=== PATIENT | female | born 2000 | race Caucasian/White ===

== ENCOUNTER 2022-06-11 01:44 | Outpatient (CLI) | payer MEDICAID, SELFPAY ==
[2022-06-11 15:28] LABS: Abs Immature Grans 0.06 10^3/uL (0.0-0.06); Absolute Eosinophil Count 0.22 10^3/uL (0.0-0.7); Absolute Lymphocyte Count 2.01 10^3/uL (1.2-3.4); Absolute Monocyte Count 0.69 10^3/uL (0.1-0.8); Basophils % 0.2; Eosinophils % 1.8; HCT 31.5 % (36.0-46.0); HGB 10.5 g/dL (11.2-15.7); Immature Grans % 0.5; Lymphocytes % 16.1; MCH 28.5 pg (27.0-33.0); MCHC 33.3 % (32.0-36.0); MCV 86 fL (80-95); MPV 9.2 fL (8.0-11.0); Monocytes % 5.5; Neutrophils % 75.9; Platelet Count 352 10^3/uL (130-400); RBC 3.68 10^6/uL (3.93-5.22); RDW 11.9 % (11.7-14.6); RDW-SD 37.2 fL; WBC 12.46 10^3/uL (4.4-10.8)
[2022-06-11 15:29] LABS: Absolute Basophil Count 0.02 10^3/uL (0.0-0.2); Absolute Neutrophil Count 9.46 10^3/uL (1.2-6.7)
[2022-06-11 15:53] LABS: Glucose,1 Hr (Glucola) 116 mg/dL (80-140)
[2022-06-13 14:22] LABS: Syphilis IgG w/Reflex Nonreactive (Nonreactive)
[2022-06-14 09:09] LABS: Hepatitis B Surface Ag Negative (Negative)
[2022-06-14 09:21] LABS: HIV-1/2 Ag & Ab Screen Negative (Negative)
[2022-06-14 09:35] LABS: Hepatitis C Ab w Rflx HCV PCR Negative (Negative)
[2022-06-14 12:02] LABS: Varicella IgG Antibody Positive (See Note)
[2022-06-14 12:10] LABS: Rubella IgG Ab (UVM) Positive (See Note)
== END 2022-06-11 01:45 | disposition home or self-care (01) ==
LOC: LBO 01:44
PROVIDERS: Visit Provider Advanced Practice Midwife
DX: Z34.91 Encounter for supervision of normal pregnancy, unspecified, first trimester (principal); Z3A.12 12 weeks gestation of pregnancy
CPT/HCPCS: 36415; 82950; 86787; 86803; 86850; 86900; 86901; 87340; 87389; 85025; 86762; 86780

== ENCOUNTER 2022-06-11 14:10 | Outpatient (REF) | payer MEDICAID, SELFPAY ==
--- NOTE | 2022-06-11 13:40 | PAPFT_PTH ---
PATIENT: Teetee Nielson LOC: [facility] U#:[id number] AGE/SX: 21/F ROOM: RE06/11/[address]: Yoana Marsh CNM : [id number] BED: DIS: 06/11/2022 SPEC #: [id number] RECD: 06/11/22 16:06 STATUS: JULIO REQ #: [id number] DOMINICK: 06/11/22 13:[address]: Yoana Marsh DEPT: [facility] Cytology RECD BY: Windy West ENTERED: 06/11/22 16:06 SP TYPE: PAPFT OTHR DR: Unknown,Unknown Tissues: 1 - CX/ENDOCX FOR PAP SMEARS Procedures: PAP THIN PREP/UVM Screening Comments: [id number]
== END 2022-06-11 14:11 | disposition home or self-care (01) ==
LOC: LBN 14:10
PROVIDERS: Visit Provider Advanced Practice Midwife
DX: Z12.4 Encounter for screening for malignant neoplasm of cervix (principal)
CPT/HCPCS: 88142; 87624

== ENCOUNTER 2022-06-11 16:21 | Outpatient (REF) | payer MEDICAID, SELFPAY ==
[2022-06-11 18:12] LABS: *AMPHETAMINES SCREEN URINE Negative (Negative); *BARBITURATES SCREEN URINE Negative (Negative); *BENZODIAZEPINES SCREEN URINE Negative (Negative); Cannabinoids THC Negative (Negative); Cocaine Screen,Urine Negative (Negative); METHADONE URINE SCREEN Negative (Negative); OPIATES URINE SCREEN Negative (Negative)
[2022-06-11 18:13] LABS: Tricyclic Antidepressants Negative (Negative)
[2022-06-14 15:08] LABS: Chlamydia Result Negative (Negative); GC Result Negative (Negative)
[2022-06-17 12:09] LABS: Buprenorphine Negative ng/mL (Cutoff: 5.0); Norbuprenorphine Negative ng/mL (Cutoff: 2.5)
== END 2022-06-11 16:22 | disposition home or self-care (01) ==
LOC: LBN 16:21
PROVIDERS: Visit Provider Advanced Practice Midwife
DX: Z34.91 Encounter for supervision of normal pregnancy, unspecified, first trimester (principal); Z3A.12 12 weeks gestation of pregnancy
CPT/HCPCS: 80307; 80348; 87491; 87591; 87086; 87480; 87510; 87660

== ENCOUNTER 2022-07-09 02:12 | Outpatient (CLI) | payer MEDICAID, SELFPAY ==
[2022-07-09 18:37] LABS: Panorama Kit Sent via Fed Ex
[2022-07-19 00:10] LABS: Specimen WB Whole Blood
[2022-08-17 17:14] LABS: Result Summary NEGATIVE; Specimen WB Whole Blood
== END 2022-07-09 02:13 | disposition home or self-care (01) ==
LOC: LBO 02:12
PROVIDERS: Advanced Practice Midwife; Obstetrics & Gynecology; Visit Provider Advanced Practice Midwife
DX: Z34.92 Encounter for supervision of normal pregnancy, unspecified, second trimester (principal); Z3A.16 16 weeks gestation of pregnancy; Z36.89 Encounter for other specified antenatal screening
CPT/HCPCS: 36415; 81220; 81222; 81329

== ENCOUNTER → 2022-07-28 01:11 | Outpatient (CLI) | payer MEDICAID, SELFPAY ==
--- NOTE | 2022-07-28 07:00 | DI.US_ITS ---
Exam(s) US OB 2-3 TRIMESTER EXAM: US OB 2-3 TRIMESTER CLINICAL HISTORY: anatomy,Z34.92. TECHNIQUE: Transabdominal obstetrical ultrasound was performed. COMPARISON: US POCUS EXAM from 05/20/2022 FINDINGS: There is a single viable intrauterine gestation with cardiac activity identified-143 bpm. Amniotic fluid: There is a normal amount of amniotic fluid. Placental location: The placenta is posterior grade 1,with no evidence of placenta previa.Distance be tween the tip of the placenta and the internal cervical os is 3.8 cm ANATOMY: A 3 vessel umbilical cord is seen. A four-chamber cardiac view was obtained. Right and left ventricular outflow tracts were imaged.Aortic arch images obtained. There are no obvious abnormalities of the spinal column evident. There is no obvious abnormal ity of the anterior abdominal wall. stomach and urinary bladder are identified and there is no evidence of hydronephrosis. No abnormalities of the upper lip region are identified. No evidence of choroid plexus cysts i n the brain. Dating parameters place this at approximately 19 weeks gestational age. BPD measures 19 weeks and 1 day HC measures 18 weeks and 6 days AC measures 19 weeks and 2 days FL measures 18 weeks and 6 days Estimated weight is 272 gm-0 pounds 10 ounces Fetus is at the 67th percentile on the Hadlock scale. IMPRESSION:: Single viable intrauterine gestation which is approximately 19 weeks gestational age, i mplying an NAKITA of December 22, 2022. There are no obvious anomalies evident on today's study. The placenta is posterior with no evidence of placenta previa. There is a normal amount of amniotic fluid. DATA REPOSITORY:
== END ==
PROVIDERS: Visit Provider Advanced Practice Midwife
DX: Z34.92 Encounter for supervision of normal pregnancy, unspecified, second trimester (principal)
CPT/HCPCS: 76805

== ENCOUNTER 2022-09-20 00:38 | Outpatient (CLI) | payer MEDICAID, SELFPAY ==
--- NOTE | 2022-09-20 08:00 | DI.US_ITS ---
Exam(s) US ABDOMEN LIMITED EXAM: US ABDOMEN LIMITED CLINICAL HISTORY: right upper quadrant pain - check gall bladder,R10.11 TECHNIQUE: Ultrasound abdomen performed using standard protocol. COMPARISON: US POCUS EXAM from 05/20/2022 FINDINGS: LIVER: Normal size and echogenicity. No focal liver lesions are seen.. GALLBLADDER: Sludge as well as layering tiny stones no evidence of wall thickening. No pericholecysti c fluid identified. BAL'S SIGN: Negative. BILIARY SYSTEM: No intrahepatic or extrahepatic biliary ductal dilation. RIGHT KIDNEY: Normal size. No evidence of renal calculi. No evidence of hydronephrosis. No suspicious renal mass. No cyst identified. PANCREAS: Normal where visualized. ABDOMINAL AORTA AND IVC: Visualized portions normal caliber. ASCITES: None seen. IMPRESSION: Cholelithiasis.. DATA REPOSITORY:
== END 2022-09-20 00:58 ==
PROVIDERS: Visit Provider Obstetrics & Gynecology
DX: K80.20 Calculus of gallbladder without cholecystitis without obstruction (principal)
CPT/HCPCS: 76705

== ENCOUNTER 2022-09-23 01:38 | Outpatient (CLI) | payer MEDICAID, SELFPAY ==
[2022-09-23 15:15] LABS: Abs Immature Grans 0.08 10^3/uL (0.0-0.06); Absolute Basophil Count 0.02 10^3/uL (0.0-0.2); Absolute Eosinophil Count 0.17 10^3/uL (0.0-0.7); Absolute Lymphocyte Count 1.43 10^3/uL (1.2-3.4); Absolute Monocyte Count 0.75 10^3/uL (0.1-0.8); Basophils % 0.2; Eosinophils % 1.4; HCT 29.6 % (36.0-46.0); Immature Grans % 0.7; Lymphocytes % 12.1; MCH 30.1 pg (27.0-33.0); MCHC 33.8 % (32.0-36.0); MCV 89 fL (80-95); MPV 9.4 fL (8.0-11.0); Monocytes % 6.3; Neutrophils % 79.3; Platelet Count 285 10^3/uL (130-400); RBC 3.32 10^6/uL (3.93-5.22); WBC 11.85 10^3/uL (4.4-10.8)
[2022-09-23 15:33] LABS: Glucose,1 Hr (Glucola) 117 mg/dL (80-140)
== END 2022-09-23 01:39 | disposition home or self-care (01) ==
LOC: LBO 01:38
PROVIDERS: Obstetrics & Gynecology; Visit Provider Advanced Practice Midwife
DX: Z34.92 Encounter for supervision of normal pregnancy, unspecified, second trimester (principal); Z3A.27 27 weeks gestation of pregnancy
CPT/HCPCS: 36415; 82950; 85025

== ENCOUNTER 2022-11-22 15:49 | Outpatient (CLI) | payer MEDICAID, SELFPAY ==
[2022-11-22 16:14] LABS: Abs Immature Grans 0.22 10^3/uL (0.0-0.06); Absolute Basophil Count 0.05 10^3/uL (0.0-0.2); Absolute Eosinophil Count 0.32 10^3/uL (0.0-0.7); Absolute Lymphocyte Count 1.63 10^3/uL (1.2-3.4); Basophils % 0.3; Eosinophils % 1.8; HCT 32.7 % (36.0-46.0); HGB 11.1 g/dL (11.2-15.7); Immature Grans % 1.2; Lymphocytes % 9.2; MCH 29.8 pg (27.0-33.0); MCHC 33.9 % (32.0-36.0); MCV 88 fL (80-95); MPV 10.1 fL (8.0-11.0); Monocytes % 7.9; Neutrophils % 79.6; Platelet Count 364 10^3/uL (130-400); RBC 3.73 10^6/uL (3.93-5.22); RDW-SD 41.6 fL; WBC 17.72 10^3/uL (4.4-10.8)
[2022-11-22 16:15] LABS: Absolute Neutrophil Count 14.11 10^3/uL (1.2-6.7)
[2022-11-22 17:00] LABS: ALT 23 U/L (14-59); AST 18 U/L (15-37); Alkaline Phosphatase 118 U/L (46-116); Anion Gap 10.8 mmol/L (3-11); BUN 6 mg/dL (7-18); Bilirubin, Total 0.2 mg/dL (0.2-1.0); CO2 24.2 mmol/L (21.0-32.0); CREATININE 0.5 mg/dL (0.55-1.02); Calcium 9.8 mg/dL (8.5-10.1); Chloride 104 mmol/L (98-107); Estimated GFR 135.91 (mL/min/1.73m2); Glucose 110 mg/dL (74-106); Potassium 3.7 mmol/L (3.5-5.1); Sodium 139 mmol/L (136-145); Total Protein 7.1 g/dL (6.4-8.2)
[2022-11-25 15:40] LABS: Total Bile Acids 3.36 nmol/mL (<=19.00); Total Chenodeoxycholic acid 1.48 nmol/mL (<=6.00); Total Cholic acid 0.77 nmol/mL (<=5.00); Total Deoxycholic acid 0.65 nmol/mL (<=6.00); Total Ursodeoxycholic acid 0.46 nmol/mL (<=2.00)
== END 2022-11-22 15:50 | disposition home or self-care (01) ==
LOC: LBO 15:53
PROVIDERS: Visit Provider Obstetrics & Gynecology
DX: O99.713 Diseases of the skin and subcutaneous tissue complicating pregnancy, third trimester; L50.8 Other urticaria; Z3A.35 35 weeks gestation of pregnancy
CPT/HCPCS: 36415; 80053; 83789; 85025

== ENCOUNTER 2022-11-30 12:50 | Outpatient (CLI) | payer MEDICAID, SELFPAY ==
--- NOTE | 2022-11-30 15:45 | DI.US_ITS ---
Exam(s) US LOWER EXTREMITY VENOUS LT EXAM: US LOWER EXTREMITY VENOUS LT CLINICAL HISTORY: Pain L lateral ankle. 1.52m difference in circum, 3rd trimester , TECHNIQUE: Left lower extremity venous ultrasound performed using grayscale, color-flow, and spectra l Doppler analysis. COMPARISON: No exams were available for comparison FINDINGS: The left common femoral, femoral and popliteal veins demonstrate normal compressibility, augmentation , and color Doppler. The posterior tibial veins are patent. The saphenofemoral junction is unremarka ble. There is no evidence of a Eastman cyst. The soft tissues are unremarkable. IMPRESSION: No evidence of a left lower extremity DVT. DATA REPOSITORY:
== END 2022-11-30 12:51 | disposition home or self-care (01) ==
LOC: LBN 04-05 12:51
PROVIDERS: Visit Provider Obstetrics & Gynecology Gynecology
DX: M25.572 Pain in left ankle and joints of left foot (principal); Z34.93 Encounter for supervision of normal pregnancy, unspecified, third trimester
CPT/HCPCS: 87081; 93971

== ENCOUNTER 2022-12-08 13:43 | Outpatient (CLI) | payer MEDICAID, SELFPAY ==
[2022-12-08 13:56] VITALS: BP 138/85; PULSE 104
[2022-12-08 14:10] VITALS: BP 138/85; PULSE 104; TEMP 36.6
[2022-12-08 14:13] VITALS: BP 129/78; PULSE 111
[2022-12-08 14:27] LABS: Abs Immature Grans 0.12 10^3/uL (0.0-0.06); Absolute Basophil Count 0.03 10^3/uL (0.0-0.2); Absolute Eosinophil Count 0.25 10^3/uL (0.0-0.7); Absolute Monocyte Count 0.96 10^3/uL (0.1-0.8); Absolute Neutrophil Count 13.63 10^3/uL (1.2-6.7); Basophils % 0.2; Eosinophils % 1.5; HCT 33.6 % (36.0-46.0); HGB 11.5 g/dL (11.2-15.7); Immature Grans % 0.7; Lymphocytes % 10.7; MCH 29.9 pg (27.0-33.0); MCHC 34.2 % (32.0-36.0); MCV 88 fL (80-95); Monocytes % 5.7; Neutrophils % 81.2; Platelet Count 406 10^3/uL (130-400); RBC 3.84 10^6/uL (3.93-5.22); RDW 13.1 % (11.7-14.6); RDW-SD 41.8 fL; WBC 16.79 10^3/uL (4.4-10.8)
[2022-12-08 14:39] VITALS: BP 127/75; PULSE 111
[2022-12-08 14:52] LABS: ALT 24 U/L (14-59); AST 19 U/L (15-37); Albumin 2.9 g/dL (3.4-5.0); Alkaline Phosphatase 128 U/L (46-116); Anion Gap 11.2 mmol/L (3-11); BUN 6 mg/dL (7-18); Bilirubin, Total 0.2 mg/dL (0.2-1.0); CO2 22.8 mmol/L (21.0-32.0); CREATININE 0.5 mg/dL (0.55-1.02); Calcium 9.2 mg/dL (8.5-10.1); Chloride 106 mmol/L (98-107); Estimated GFR 135.91 (mL/min/1.73m2); Glucose 123 mg/dL (74-106); Potassium 3.7 mmol/L (3.5-5.1); Sodium 140 mmol/L (136-145); Total Protein 7.1 g/dL (6.4-8.2)
[2022-12-08 15:30] VITALS: BP 138/85; PULSE 104; TEMP 36.6
--- NOTE | 2022-12-08 15:30 | W.OBNST ---
Date of service: 12/08/22 Time of Service: 15:30 NST Evaluation Reason for NST Reasons for Nonstress Test: GESTATIONAL HYPERTENSION Gestational Age Gestational Age in Weeks and Days: 37 Weeks and 5Days Test and Monitor Explained Test/Monitor Explained: Test Explained, Monitor Explained and Patient Verbalized Understanding Vital Signs Blood Pressure: 138/85 Pulse: 104 Temperature: 97.9 F NST Information Date on Monitor: 12/08/22 Time on Monitor: 13:52 Date off Monitor: 12/08/22 Time off Monitor: 14:37 Total Time on Monitor: 45 NST Interventions: PO Hydration NST Evaluation Patient States Movement: Present FHR Baseline: 135 Variability: Moderate 6-25 bpm Accelerations: 15x15 Decelerations: None NST Results: Reactive Note Ultrasound Done: N/A. NST Note Note: Reactive, category 1 NST Reviewed and Verified by: Krystyna Wilburn
[2022-12-08 17:51] LABS: COMMENT (LAB VIEW ONLY) 70.18 mg/dL; PROTEIN 18.8 mg/dL; Prot/Crea Ur Ratio 0.26
== END 2022-12-08 14:45 ==
LOC: BCD 13:44 → OBS 13:47
PROVIDERS: Visit Provider Obstetrics & Gynecology
DX: O13.9 Gestational [pregnancy-induced] hypertension without significant proteinuria, unspecified trimester (principal); Z3A.37 37 weeks gestation of pregnancy
CPT/HCPCS: 36415; 80053; 59025; 82565; 84156; 85025

== ENCOUNTER 2022-12-13 13:24 | Outpatient (REF) | payer MEDICAID, SELFPAY ==
[2022-12-13 14:14] LABS: PROTEIN 28.2 mg/dL (0.0-11.9)
[2022-12-13 14:16] LABS: Creatinine,24hr Ur 1.31 g/24hr (0.60-1.80); TOTAL PROTEIN,URINE TIMED 310.2 mg/24hr (0.0-149.1); Total Volume 1100 ml
== END 2022-12-13 13:25 | disposition home or self-care (01) ==
LOC: LBN 13:24
PROVIDERS: Visit Provider Obstetrics & Gynecology
DX: O13.3 Gestational [pregnancy-induced] hypertension without significant proteinuria, third trimester (principal); Z3A.38 38 weeks gestation of pregnancy
CPT/HCPCS: 81050; 82570; 84155

== ENCOUNTER 2022-12-17 13:54 | Inpatient (IN) | payer MEDICAID, SELFPAY ==
[2022-12-17] VITALS (72 sets, daily range): BP systolic 108–161; BP diastolic 55–105; PULSE 0–148; RESP 18–20; TEMP 36.7–36.9; O2SAT 97–98
[2022-12-17 14:28] LABS: HCT 33.9 % (36.0-46.0); HGB 11.4 g/dL (11.2-15.7); MCH 29.8 pg (27.0-33.0); MCHC 33.6 % (32.0-36.0); MCV 89 fL (80-95); MPV 10.2 fL (8.0-11.0); Platelet Count 401 10^3/uL (130-400); RBC 3.82 10^6/uL (3.93-5.22); RDW 13.1 % (11.7-14.6); RDW-SD 41.9 fL; WBC 13.33 10^3/uL (4.4-10.8)
[2022-12-17 14:39] LABS: COMMENT (LAB VIEW ONLY) 61.58 mg/dL; Prot/Crea Ur Ratio 0.29
[2022-12-17] MEDS: miSOPROStol 25 MCG TAB PO ×3 (14:41→23:06)
[2022-12-17 14:50] LABS: ALT 20 U/L (14-59); AST 17 U/L (15-37); Albumin 2.9 g/dL (3.4-5.0); Alkaline Phosphatase 136 U/L (46-116); Anion Gap 10.1 mmol/L (3-11); BUN 4 mg/dL (7-18); Bilirubin, Total 0.2 mg/dL (0.2-1.0); CO2 21.9 mmol/L (21.0-32.0); CREATININE 0.4 mg/dL (0.55-1.02); Chloride 104 mmol/L (98-107); Estimated GFR 143.42 (mL/min/1.73m2); Glucose 93 mg/dL (74-106); Potassium 3.7 mmol/L (3.5-5.1); Sodium 136 mmol/L (136-145); Total Protein 7.1 g/dL (6.4-8.2)
--- NOTE | 2022-12-17 16:56 | HPE_ITS ---
Date of service: 12/17/22 Time of Service: 16:56 Assessment and Plan Assessment and plan (1) Gestational HTN: Status: Acute Assessment and plan: Patient currently 39W0D EGA with headache and variable blood pressures. Her laboratory studies including protein creatinine ratio are normal. Physical exam is unremarkable. I recommended that we begin the proximal process of cervical ripening with the planned augmentation of labor and move towards delivery in a timely fashion. Patient is agreeable to the plan. We will begin oral misoprostol every 4 hours. OB-HPI Labor/Delivery History of Present Illness Reason for Visit: headache at term Chief Complaint: Signs/Symptoms Gestational HTN , Associated Signs and Symptoms of GestationalHTN: Elevated blood pressure, headache low stream edema. NAKITA Calculator Estimated Delivery Date Method Current WG Current Estimate 12/24/22 LMP (Certain) 39w 0d Other Estimates 12/25/22 Ultrasound #1 38w 6d History of Present Expected Delivery Route/Plan - FOB/ - Jalen (first child) Doesn't want to know gender Specific Issues/Plan 1.cfDNA, CF/SMA neg. Dont want to know gender 2. BMI 37.5 - early GTT:116. 28w Glucola 117. 3.Intake Hgb 10.5/HCT 31.5. 28w Hct 29.5. Pt counseled Ferrous sulfate 325mg/day 10/08/2022. Offer patient Tdap at 32-week visit Assessment: History Reviewed & Current Narrative: Patient established care at 8 weeks estimated gestational age. She has had a total of 14 visits. Size equal to dates. Total weight gain 43 pounds. On 12/08/2022 at the time of a routine visit her blood pressure was 141/71. CMP, CBC were normal, her 24-hour urine protein 310 mg / 24 hours. She called the office today to report headache for several days and not feeling well. Patient reports experiencing swelling in her lower extremities such that it is painful to walk. No visual changes no abdominal pain Informed Consent Informed Consent: Induction of Labor Review of Systems All systems reviewed & are unremarkable except as noted in HPI and below Constitutional Constitutional: Reports body ache(s) (Lower extremity pain secondary to bilateral swelling) and Reports headache(s) (Central, not relieved with acetaminophen. No headache today. ) ENT Ears, Nose, Mouth, and Throat: Reports headache(s) (Central, not relieved with acetaminophen. No headache today. ) Respiratory Respiratory: Reports system reviewed and no additional complaints, except as documented Gastrointestinal Gastrointestinal: Denies abdominal pain and Denies bloating Genitourinary Comments: No rupture membranes Musculoskeletal Musculoskeletal: Reports system reviewed and no additional complaints, except as documented Neurologic Neurologic: Reports headache(s) (Central, not relieved with acetaminophen. No headache today. ) Psychiatric Psychiatric: Reports system reviewed and no additional complaints, except as documented PFSH All Active Problems (Updated 12/08/22 @ 13:34 by Krystyna Wilburn DO) Gestational HTN (Acute) Ankle pain, left (Acute) Acute urticaria (Acute) Third trimester (Acute) Second trimester (Acute) Right upper quadrant pain (Acute) Family History (Updated 06/11/22 @ 13:05 by Yoana Marsh CNM) Paternal Aunt Multiple myeloma Maternal Grandmother Diabetes Social History (Updated 06/11/22 @ 13:08 by Yoana Marsh CNM) Smoking/Tobacco Use Status: Never Second Hand Exposure: No Smoking risk assessment performed?: Yes Alcohol Intake: never Drug use: Never Substance use type: does not use What is your relationship status?: How often do you talk on the phone with friends or family?: twice per week How often do you get together with friends or relatives?: twice per week Do you belong to any clubs or organized social groups?: no Panel score (0-1 are the most socially isolated patients): 2 What type of physical activity do you participate in: walking Duration: 15-30 minutes/day Frequency: 3-4 times per week Nadia/[employer]ist: Mandaen Special nadia needs: No Seatbelt use: always Helmet use: Yes Drive intox 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 Water heater temp set <120 deg: Yes Working smoke detector in home: Yes Fire extinguisher in home: Yes Carbon monox detector in home: Yes Firearms in home: Yes Firearms unloaded and locked: Yes Do you feel safe at home: Yes Do you feel safe in your relationship?: Yes History History 1 Para 0 Hx # Term Pregnancies 0 Multiple births 0 Hx # Pregnancies 0 Ectopic pregnancies 0 AB induced 0 Hx Number of Living Children 0 AB spontaneous 0 Meds Allergies and Home Medications Allergies Allergy/AdvReac Type Severity Reaction Status Date / Time No Known Drug Allergies Allergy Verified 12/13/22 13:21 Home Medications Medication Instructions Recorded Confirmed Type prenat.vits,yolande,awl-tspp-wbfsu 1 tab PO DAILY 05/20/22 12/17/22 History ferrous gluconate 240 mg (27 mg 240 mg PO DAILY 10/21/22 12/17/22 History iron) tablet hydroxyzine pamoate 50 mg capsule 50 mg PO QHS #20 caps 11/30/22 12/17/22 Rx (Vistaril) magnesium 200 mg tablet 200 mg PO DAILY 12/10/22 12/17/22 History Exam Physical Exam Vital signs: Temp Pulse Resp BP Pulse Ox 98.4 F 100 H 18 128/72 98 12/17/22 16:36 12/17/22 16:36 12/17/22 16:36 12/17/22 16:36 12/17/22 16:36 Vital Signs Reviewed: Yes Narrative: Upon arrival diastolic blood pressure high 90s. After modified activity level during NST and blood pressures normalized. Constitutional Constitutional: no acute distress Detailed Labor and Delivery Exam Dilation: 0 Effacement (%): 75 station: -1 Position: OA Cervix position: mid Consistency: soft Neely Score: Cervical Points Exam 0 1 2 3 Dilation Closed 1-2cm 3-4 cm 5-6cm Effacement 0-30% 40-50% 60-70% 80% Consistency Firm Medium Soft Station -3 -2 -1,0 +1,+2 Position Posterior Mid Anterior NEELY Score(Cervical Ripeness Score): 6 Amniotic Membrane Status: Intact Contraction Frequency(min): None Fetus A Heart Rate Baseline: 140 Monitor Accelerations: 15 X 15 Monitor Decelerations: None Variability: Moderate (6-25 BPM) Presentation: Cephalic Categories: Category I Est. Weight: 8 lb Neck Exam Neck Exam: Normal Chest/Brest/Axilla Exam Chest Exam: Not Done Breast Exam Breast Exam: Not Done Respiratory Exam Respiratory Exam: Normal Cardiovascular Exam Cardiovascular Exam: Normal Abdominal Exam Abdominal Exam: Normal Rectal Exam Rectal Exam: Not Done Exam Exam: Normal Extremities Exam Extremities Exam: Normal (1+ nonpitting pretibial edema) Back/Spine/Pelvis Exam Back Exam: Normal Pelvis Adequate: Yes Skin Exam Skin Exam: Normal Neurological Exam Neurological Exam: Normal Psychiatric Exam Psychiatric Exam: Normal Results Results Group Beta Strep: Negative Blood Type: O+ Rubella Status: Immune Varicella Immunity: Immune Abnormal Lab Findings: Abnormal Labs 12/17/22 12/17/22 14:16 14:16 WBC 13.33 H RBC 3.82 L Hct 33.9 L Plt Count 401 H BUN 4 L Creatinine 0.4 L Alkaline Phosphatase 136 H Albumin 2.9 L Risk Assessment Risk for Shoulder Dystocia Historical/Initial OB: NEGATIVE FOR: Pelvic Abnormality, Pre- BMI>30, Previous Shoulder Dystocia or Previous Macrosomia 40 Weeks: POSTIVE FOR: Maternal Weight Gain >40lb Increased Risk?: Yes Date/Initial: 06/11/22 Risk for Pre-Eclampsia Yes, if one or more: NEGATIVE FOR: Hx Pre-E/Gest HTN, Chronic HTN, Multiple Gestation, Pre-gestational DM, Renal Disease, Systemic Lupus or APA Syndrome Yes, if 2 or more: POSITIVE FOR: Nulliparity; NEGATIVE FOR: Age>= 35 yrs, >10yr btwn pregnancies, BMI>30, ethinicty, Mother/Sister w/ Pre-E or Previous IUGR Risk for Post- Hemorrhage Initial: NEGATIVE FOR: Multiple Gestation, Previous PPH, Known Clotting Deficiency, Grand Multiparity or Anticoagulation At Risk?: Yes Counseled re: Active Management: Yes Date/Initials: 06/11/22 Risks Reviewed Risks Reviewed Upon Admission: Yes
[2022-12-17] MEDS: Zolpidem 5 MG TAB 10 MG PO (21:23)
[2022-12-18] VITALS (31 sets, daily range): BP systolic 113–162; BP diastolic 66–126; PULSE 88–127; RESP 16; TEMP 36.6–36.8; O2SAT 89–100
[2022-12-18] MEDS: miSOPROStol 25 MCG TAB PO (02:57)
--- NOTE | 2022-12-18 08:48 | PGE_ITS ---
Date of service: 12/18/22 Time of Service: 08:48 Informed Consent Informed Consent: Induction of Labor (Patient is agreeable to beginning oxytocin titration this morning.) Pelvic Exam Comments: is vertex by exam however is ballotable at -1 station Contractions Monitor Mode: External Contraction Frequency(min): Irregular Contraction Duration(sec): 40 Intensity: Mild Fetus A Monitor: External (US) Heart Rate Baseline: 140 Presentation: Cephalic Variability: Moderate (6-25 BPM) Categories: Category I FHR Rhythm: Regular Characteristics: Normal Accelerations: Present Amniotic Membrane Status: Intact Assessment and Plan Assessment and plan (1) Gestational HTN: Status: Acute Assessment and plan: Patient is currently 39 weeks 1 day EGA with gestational hypertension. She received 3 doses of oral misoprostol the last dose being at 2:00 this morning. The plan is to proceed with oxytocin augmentation of labor. Patient is agreeable to the plan her questions were answered Objective Abnormal lab results 12/17/22 12/17/22 Range/Units 14:16 14:16 WBC 13.33 H (4.4-10.8) 10^3/uL RBC 3.82 L (3.93-5.22) 10^6/uL Hct 33.9 L (36.0-46.0) % Plt Count 401 H (130-400) 10^3/uL BUN 4 L (7-18) mg/dL Creatinine 0.4 L (0.55-1.02) mg/dL Alkaline Phosphatase 136 H (46-116) U/L Albumin 2.9 L (3.4-5.0) g/dL Temp Pulse Resp BP Pulse Ox 98.2 F 112 H 16 125/81 98 12/18/22 07:10 12/18/22 07:10 12/18/22 07:10 12/18/22 07:10 12/17/22 18:34 Laboratory Results WBC Cancelled 12/17/22 Unknown RBC Cancelled 12/17/22 Unknown Hgb Cancelled 12/17/22 Unknown Hct Cancelled 12/17/22 Unknown MCV Cancelled 12/17/22 Unknown MCH Cancelled 12/17/22 Unknown MCHC Cancelled 12/17/22 Unknown RDW Cancelled 12/17/22 Unknown Plt Count Cancelled 12/17/22 Unknown MPV Cancelled 12/17/22 Unknown Sodium 136 mmol/L (136-145) 12/17/22 14:16 Potassium 3.7 mmol/L (3.5-5.1) 12/17/22 14:16 Chloride 104 mmol/L (98-107) 12/17/22 14:16 Carbon Dioxide 21.9 mmol/L (21.0-32.0) 12/17/22 14:16 Anion Gap 10.1 mmol/L (3-11) 12/17/22 14:16 BUN 4 mg/dL (7-18) L 12/17/22 14:16 Creatinine 0.4 mg/dL (0.55-1.02) L 12/17/22 14:16 Est GFR (CKD-EPI 2020) 143.42 (mL/min/1.73m2) 12/17/22 14:16 Glucose 93 mg/dL (74-106) 12/17/22 14:16 Calcium 9.0 mg/dL (8.5-10.1) 12/17/22 14:16 Total Bilirubin 0.2 mg/dL (0.2-1.0) 12/17/22 14:16 AST 17 U/L (15-37) 12/17/22 14:16 ALT 20 U/L (14-59) 12/17/22 14:16 Alkaline Phosphatase 136 U/L (46-116) H 12/17/22 14:16 Total Protein 7.1 g/dL (6.4-8.2) 12/17/22 14:16 Albumin 2.9 g/dL (3.4-5.0) L 12/17/22 14:16 Ur Random Creatinine 61.58 mg/dL 12/17/22 13:40 U Random Total Protein 18.0 mg/dL 12/17/22 13:40 U [place] Prot/Creat Ratio 0.29 12/17/22 13:40 Patient ABO/Rh O Positive 12/17/22 14:16 Antibody Screen NEGATIVE 12/17/22 14:16 Vital Signs Reviewed: Yes Subjective Patient Reports: No new Complaints (Patient feeling contractions after 3 doses of misoprostol) Interval history since last seen: Patient was admitted to the [facility] 12/17/2022 with report of headache and increased edema in lower extremities. Her laboratory studies were normal urine protein creatinine ratio less than 0.3 and blood pressure 148/87 on admission. Her blood pressure has normalized during the night, no complaints of headache or visual changes. She has received 3 doses of 25 mcg of misoprostol with the last dose at 2 AM. Interventions Augmentation , Pitocin rate (mU/min): 2 Beginning low-dose oxytocin protocol . Results Hemoglobin/Hematocrit: Hgb Cancelled 12/17/22 Unknown Hct Cancelled 12/17/22 Unknown Abnormal Lab Findings: Abnormal Labs 12/17/22 12/17/22 14:16 14:16 WBC 13.33 H RBC 3.82 L Hct 33.9 L Plt Count 401 H BUN 4 L Creatinine 0.4 L Alkaline Phosphatase 136 H Albumin 2.9 L
[2022-12-18] MEDS: Oxytocin/Normal Saline 30 UNIT/500 ML BAG 2 UNITS IV (08:56)
[2022-12-18] MEDS: Lactated Ringers 1,000 ML 125 ML IV ×3 (08:56→22:28)
[2022-12-18] MEDS: Normal Saline Flush 10 ML SYR IVP (09:06)
--- NOTE | 2022-12-18 14:02 | PGE_ITS ---
Date of service: 12/18/22 Time of Service: 14:03 Informed Consent Informed Consent: Induction of Labor (Patient is agreeable to beginning oxytocin titration this morning.) Pelvic Exam Dilation: 1 Effacement (%): 50 station: -1 (ballotable) Cervix Position: mid Consistency: medium Vaginal Exam Presentation: Cephalic Comments: small amount of blood tinged mucus on exam glove. Contractions Monitor Mode: External Contraction Frequency(min): 2-3 Contraction Duration(sec): 30-60 Intensity: Mild Fetus A Monitor: External (US) Heart Rate Baseline: 150 Presentation: Cephalic Variability: Moderate (6-25 BPM) Categories: Category I FHR Rhythm: Regular Characteristics: Normal Accelerations: 15 X 15 Decelerations: None Amniotic Membrane Status: Intact Assessment and Plan Assessment and plan (1) Encounter for induction of labor: Status: Acute Assessment and plan: Will continue with Oxytocin infusion. Plan to continue titration beyond 20mu/min (2) Gestational HTN: Status: Acute Assessment and plan: BP remains stable. Objective Abnormal lab results 12/17/22 12/17/22 Range/Units 14:16 14:16 WBC 13.33 H (4.4-10.8) 10^3/uL RBC 3.82 L (3.93-5.22) 10^6/uL Hct 33.9 L (36.0-46.0) % Plt Count 401 H (130-400) 10^3/uL BUN 4 L (7-18) mg/dL Creatinine 0.4 L (0.55-1.02) mg/dL Alkaline Phosphatase 136 H (46-116) U/L Albumin 2.9 L (3.4-5.0) g/dL Temp Pulse Resp BP Pulse Ox 97.9 F 107 H 16 144/85 H 98 12/18/22 09:00 12/18/22 13:13 12/18/22 09:00 12/18/22 13:13 12/17/22 18:34 Laboratory Results WBC Cancelled 12/17/22 Unknown RBC Cancelled 12/17/22 Unknown Hgb Cancelled 12/17/22 Unknown Hct Cancelled 12/17/22 Unknown MCV Cancelled 12/17/22 Unknown MCH Cancelled 12/17/22 Unknown MCHC Cancelled 12/17/22 Unknown RDW Cancelled 12/17/22 Unknown Plt Count Cancelled 12/17/22 Unknown MPV Cancelled 12/17/22 Unknown Sodium 136 mmol/L (136-145) 12/17/22 14:16 Potassium 3.7 mmol/L (3.5-5.1) 12/17/22 14:16 Chloride 104 mmol/L (98-107) 12/17/22 14:16 Carbon Dioxide 21.9 mmol/L (21.0-32.0) 12/17/22 14:16 Anion Gap 10.1 mmol/L (3-11) 12/17/22 14:16 BUN 4 mg/dL (7-18) L 12/17/22 14:16 Creatinine 0.4 mg/dL (0.55-1.02) L 12/17/22 14:16 Est GFR (CKD-EPI 2020) 143.42 (mL/min/1.73m2) 12/17/22 14:16 Glucose 93 mg/dL (74-106) 12/17/22 14:16 Calcium 9.0 mg/dL (8.5-10.1) 12/17/22 14:16 Total Bilirubin 0.2 mg/dL (0.2-1.0) 12/17/22 14:16 AST 17 U/L (15-37) 12/17/22 14:16 ALT 20 U/L (14-59) 12/17/22 14:16 Alkaline Phosphatase 136 U/L (46-116) H 12/17/22 14:16 Total Protein 7.1 g/dL (6.4-8.2) 12/17/22 14:16 Albumin 2.9 g/dL (3.4-5.0) L 12/17/22 14:16 Ur Random Creatinine 61.58 mg/dL 12/17/22 13:40 U Random Total Protein 18.0 mg/dL 12/17/22 13:40 U [place] Prot/Creat Ratio 0.29 12/17/22 13:40 Patient ABO/Rh O Positive 12/17/22 14:16 Antibody Screen NEGATIVE 12/17/22 14:16 Vital Signs Reviewed: Yes Objective Narrative Objective Narrative: Cervical exam essentially unchanged since this am. I recommended to increase Oxytocin infusion beyond 20mu/min and will perform SVE in 1.5hrs Subjective Patient Reports: No new Complaints (not appreciating uterine discomfort. Is aware of contractions.) Interval history since last seen: Oxytocin infusion started this am. Current dose of Oxytocin is 18mu/min. Contractions well tolerated by pt and FHR tracing remains Category 1. Results Hemoglobin/Hematocrit: Hgb Cancelled 12/17/22 Unknown Hct Cancelled 12/17/22 Unknown Abnormal Lab Findings: Abnormal Labs 12/17/22 12/17/22 14:16 14:16 WBC 13.33 H RBC 3.82 L Hct 33.9 L Plt Count 401 H BUN 4 L Creatinine 0.4 L Alkaline Phosphatase 136 H Albumin 2.9 L
--- NOTE | 2022-12-18 16:41 | PGE_ITS ---
Date of service: 12/18/22 Time of Service: 16:41 Informed Consent Informed Consent: Induction of Labor (Patient is agreeable to beginning oxytocin titration this morning.) Pelvic Exam Comments: SVE unchanged from previous exam. Attempted AROM unsuccessful. A Cook catheter was placed with the internal balloon inflated with 60 cc of sterile water and the vaginal balloon also inflated to 60 cc of sterile water Contractions Monitor Mode: External Contraction Frequency(min): 2 Contraction Duration(sec): 40-50 Intensity: Mild Fetus A Monitor: External (US) Heart Rate Baseline: 140 Presentation: Vertex Variability: Moderate (6-25 BPM) Categories: Category I FHR Rhythm: Regular Characteristics: Normal Accelerations: 15 X 15 Decelerations: None Amniotic Membrane Status: Intact Assessment and Plan Assessment and plan (1) Encounter for induction of labor: Status: Acute Assessment and plan: No appreciable cervical change despite misoprostol and oxytocin infusion currently maximized at 20 milliunits/min. Cook catheter has been placed and the plan at this time is to maintain the oxytocin on the current dose. (2) Gestational HTN: Status: Acute Objective Temp Pulse Resp BP Pulse Ox 98.1 F 120 H 16 132/84 98 12/18/22 13:13 12/18/22 15:42 12/18/22 09:00 12/18/22 15:42 12/17/22 18:34 Laboratory Results WBC Cancelled 12/17/22 Unknown RBC Cancelled 12/17/22 Unknown Hgb Cancelled 12/17/22 Unknown Hct Cancelled 12/17/22 Unknown MCV Cancelled 12/17/22 Unknown MCH Cancelled 12/17/22 Unknown MCHC Cancelled 12/17/22 Unknown RDW Cancelled 12/17/22 Unknown Plt Count Cancelled 12/17/22 Unknown MPV Cancelled 12/17/22 Unknown Sodium 136 mmol/L (136-145) 12/17/22 14:16 Potassium 3.7 mmol/L (3.5-5.1) 12/17/22 14:16 Chloride 104 mmol/L (98-107) 12/17/22 14:16 Carbon Dioxide 21.9 mmol/L (21.0-32.0) 12/17/22 14:16 Anion Gap 10.1 mmol/L (3-11) 12/17/22 14:16 BUN 4 mg/dL (7-18) L 12/17/22 14:16 Creatinine 0.4 mg/dL (0.55-1.02) L 12/17/22 14:16 Est GFR (CKD-EPI 2020) 143.42 (mL/min/1.73m2) 12/17/22 14:16 Glucose 93 mg/dL (74-106) 12/17/22 14:16 Calcium 9.0 mg/dL (8.5-10.1) 12/17/22 14:16 Total Bilirubin 0.2 mg/dL (0.2-1.0) 12/17/22 14:16 AST 17 U/L (15-37) 12/17/22 14:16 ALT 20 U/L (14-59) 12/17/22 14:16 Alkaline Phosphatase 136 U/L (46-116) H 12/17/22 14:16 Total Protein 7.1 g/dL (6.4-8.2) 12/17/22 14:16 Albumin 2.9 g/dL (3.4-5.0) L 12/17/22 14:16 Ur Random Creatinine 61.58 mg/dL 12/17/22 13:40 U Random Total Protein 18.0 mg/dL 12/17/22 13:40 U [place] Prot/Creat Ratio 0.29 12/17/22 13:40 Patient ABO/Rh O Positive 12/17/22 14:16 Antibody Screen NEGATIVE 12/17/22 14:16 Interventions Induction Indication: Chronic Hypertension, Type of Induction: Ba Bulb Additional Info Ba Induction: Cook catheter placed without difficulty using speculum with the patient in lithotomy position. Uterine balloon inflated with 60 cc of sterile water. Vaginal balloon also inflated with 60 cc of sterile water. Patient tolerated the procedure well , Results Hemoglobin/Hematocrit: Hgb Cancelled 12/17/22 Unknown Hct Cancelled 12/17/22 Unknown Abnormal Lab Findings: Abnormal Labs 12/17/22 12/17/22 14:16 14:16 WBC 13.33 H RBC 3.82 L Hct 33.9 L Plt Count 401 H BUN 4 L Creatinine 0.4 L Alkaline Phosphatase 136 H Albumin 2.9 L
--- NOTE | 2022-12-18 20:08 | W.PM.OBNL1 ---
Date of service: 12/18/22 Time of Service: 20:08 Informed Consent Informed Consent: Induction of Labor (Patient is agreeable to beginning oxytocin titration this morning.) Pelvic Exam Dilation: 3 station: -1 Cervix Position: mid Consistency: medium Vaginal Exam Presentation: Vertex Contractions Intensity: Mild/Moderate Fetus A Monitor: External (US) Heart Rate Baseline: 140 Presentation: Cephalic Variability: Moderate (6-25 BPM) Categories: Category I FHR Rhythm: Regular Characteristics: Normal Accelerations: 15 X 15 Decelerations: None Amniotic Membrane Status: Intact Assessment and Plan Assessment and plan (1) Encounter for induction of labor: Status: Acute Assessment and plan: Cervix dilated after Cook balloon catheter was placed. presenting part remains at -1. Patient is becoming more uncomfortable with painful regular contractions. I recommended labor epidural to facilitate the active management of labor. The plan is to perform AROM and IUPC placement to assess the strength of contractions and follow labor progress. She is agreeable to the plan and anesthesia has been notified. (2) Gestational HTN: Status: Acute Objective Temp Pulse Resp BP Pulse Ox 98.1 F 113 H 16 125/76 98 12/18/22 13:13 12/18/22 18:32 12/18/22 09:00 12/18/22 18:32 12/17/22 18:34 Laboratory Results WBC Cancelled 12/17/22 Unknown RBC Cancelled 12/17/22 Unknown Hgb Cancelled 12/17/22 Unknown Hct Cancelled 12/17/22 Unknown MCV Cancelled 12/17/22 Unknown MCH Cancelled 12/17/22 Unknown MCHC Cancelled 12/17/22 Unknown RDW Cancelled 12/17/22 Unknown Plt Count Cancelled 12/17/22 Unknown MPV Cancelled 12/17/22 Unknown Sodium 136 mmol/L (136-145) 12/17/22 14:16 Potassium 3.7 mmol/L (3.5-5.1) 12/17/22 14:16 Chloride 104 mmol/L (98-107) 12/17/22 14:16 Carbon Dioxide 21.9 mmol/L (21.0-32.0) 12/17/22 14:16 Anion Gap 10.1 mmol/L (3-11) 12/17/22 14:16 BUN 4 mg/dL (7-18) L 12/17/22 14:16 Creatinine 0.4 mg/dL (0.55-1.02) L 12/17/22 14:16 Est GFR (CKD-EPI 2020) 143.42 (mL/min/1.73m2) 12/17/22 14:16 Glucose 93 mg/dL (74-106) 12/17/22 14:16 Calcium 9.0 mg/dL (8.5-10.1) 12/17/22 14:16 Total Bilirubin 0.2 mg/dL (0.2-1.0) 12/17/22 14:16 AST 17 U/L (15-37) 12/17/22 14:16 ALT 20 U/L (14-59) 12/17/22 14:16 Alkaline Phosphatase 136 U/L (46-116) H 12/17/22 14:16 Total Protein 7.1 g/dL (6.4-8.2) 12/17/22 14:16 Albumin 2.9 g/dL (3.4-5.0) L 12/17/22 14:16 Ur Random Creatinine 61.58 mg/dL 12/17/22 13:40 U Random Total Protein 18.0 mg/dL 12/17/22 13:40 U [place] Prot/Creat Ratio 0.29 12/17/22 13:40 Patient ABO/Rh O Positive 12/17/22 14:16 Antibody Screen NEGATIVE 12/17/22 14:16 Subjective Patient Reports: New Complaints (more uncomfortable with contractions.) Interval history since last seen: Earlier this afternoon pt had duval ballon inserted past internal os and inflated with 60cc of sterile H2O. Approximately 30min after the ballon was inserted the balloon fell out from the patient's vagina. She has has increasingly painful contractions. Interventions Pain Management Interventions: Epidural (I recommended an epidural to both the patient and her as I anticipate continued oxytocin augmentation of labor.). Results Hemoglobin/Hematocrit: Hgb Cancelled 12/17/22 Unknown Hct Cancelled 12/17/22 Unknown Abnormal Lab Findings: Abnormal Labs 12/17/22 12/17/22 14:16 14:16 WBC 13.33 H RBC 3.82 L Hct 33.9 L Plt Count 401 H BUN 4 L Creatinine 0.4 L Alkaline Phosphatase 136 H Albumin 2.9 L
[2022-12-18] MEDS: FentaNYL/ROPIvacaine 2 mcg/ml and 0.1% 200 ML CADD Cassette EP (20:55)
--- NOTE | 2022-12-18 20:58 | ANES.NEUR_ITS ---
Epidural/Spinal Catheter Date Performed: 12/18/22 Procedure Start: 20:49 Procedure Stop: 21:10 Requesting Provider: Madalyn Perez Procedure Location: Obstetrics Reason Performed: Labor Epidural Standard Monitors Applied: Blood Pressure, SpO2 and See EMR for corresponding vital signs Patient Position: Sitting Sedation Given (Indicate Dose Given): No Sedation given Patient Mental Status: Awake Sterility: Hand Hygiene, Surgical Cap, Surgical Mask, Sterile Gloves, Sterile Drape/Sheet and Chlorhexidine Procedure Location: L3-L4 Interspace Epidural Needle: Tuohy 18 Gauge Needle Length: 3.5 Inch Needle Approach: Midline Epidural Procedure: Skin Prepped, Sterile Drape Placed, 1% Lidocaine to skin and subcutaneous tissue with 25G needle, Tuohy Needle placed, JANET to Saline Used, Epidural Catheter Placed, Negative Heme, Negative CSF Flow and Tuohy Needle Removed Catheter Placed?: Catheter Placed Test Dose (Indicate Dose Given): 3ml 1.5% Lidocaine with 1:200K Epinephrine Given and Negative Test Dose Loss of Resistance Depth (cm): 5 Catheter depth at skin (cm): 12 Dressing: [place] Dressing Placed, Mastisol Used and Dressing reinforced with Tape Epidural Provi mejia Bolus (Indicate Dose Given): Total bolus dose given in 3-5 ml divided doses and Total Ropivacaine 0.1% with Fentanyl 2mcg/ml Given from pump. (ml) Dose:: 10 ml Additives (Indicate Dose Given ): None Infusion Medication: Medication Infusion Began Medication Infusion: Ropivacaine 0.1% with Fentanyl 2mcg/ml Maintenance Infusion Rate (ml/hour): 10 PCEA Bolus Dose (ml): 5 Block Level: N/A Paresthesia: None Ultrasound: Not Used Number of Attempts (See previous attempts in note section): 1 Procedure Tolerated: No Complications and Patient tolerated well Procedure Outcome: Successful Procedure Comment:: Pt. comfortable after IV pump bolus. Educated on PCEA use. Performed By: Reagan Knight
--- NOTE | 2022-12-18 22:10 | PGE_ITS ---
Date of service: 12/18/22 Time of Service: 22:10 Informed Consent Informed Consent: Induction of Labor (Patient is agreeable to beginning oxytocin titration this morning.) Pelvic Exam Dilation: 3 Effacement (%): 75 station: -1 ( head better applied than on previous exams) Cervix Position: mid Consistency: medium Vaginal Exam Presentation: Cephalic Comments: AROM clear fluid. IUPC inserted. Contractions Monitor Mode: Internal Contraction Frequency(min): 4 Contraction Duration(sec): 50 Intensity: Mild/Moderate IUPC resting tone (mmHg): 10 IUPC peak pressure (mmHg): 65 Fetus A Heart Rate Baseline: 140 Presentation: Cephalic Variability: Moderate (6-25 BPM) Categories: Category I FHR Rhythm: Regular Characteristics: Normal Accelerations: 15 X 15 Decelerations: None Amniotic Membrane Status: Ruptured Rupture Method: Artifical Amniotic Fluid: Clear Date of Membrane Rupture: 12/18/22 Time of Membrane Rupture: 22:00 Assessment and Plan Assessment and plan (1) Encounter for induction of labor: Status: Acute Assessment and plan: IUPC in place after successful epidural placement patient is comfortable currently less than 200 [place] units by IUPC. Plan is to increase oxytocin infusion rate. (2) Gestational HTN: Status: Acute Objective Temp Pulse Resp BP Pulse Ox 98.1 F 114 H 16 131/74 98 12/18/22 13:13 12/18/22 22:08 12/18/22 09:00 12/18/22 22:08 12/18/22 21:14 Laboratory Results WBC Cancelled 12/17/22 Unknown RBC Cancelled 12/17/22 Unknown Hgb Cancelled 12/17/22 Unknown Hct Cancelled 12/17/22 Unknown MCV Cancelled 12/17/22 Unknown MCH Cancelled 12/17/22 Unknown MCHC Cancelled 12/17/22 Unknown RDW Cancelled 12/17/22 Unknown Plt Count Cancelled 12/17/22 Unknown MPV Cancelled 12/17/22 Unknown Sodium 136 mmol/L (136-145) 12/17/22 14:16 Potassium 3.7 mmol/L (3.5-5.1) 12/17/22 14:16 Chloride 104 mmol/L (98-107) 12/17/22 14:16 Carbon Dioxide 21.9 mmol/L (21.0-32.0) 12/17/22 14:16 Anion Gap 10.1 mmol/L (3-11) 12/17/22 14:16 BUN 4 mg/dL (7-18) L 12/17/22 14:16 Creatinine 0.4 mg/dL (0.55-1.02) L 12/17/22 14:16 Est GFR (CKD-EPI 2020) 143.42 (mL/min/1.73m2) 12/17/22 14:16 Glucose 93 mg/dL (74-106) 12/17/22 14:16 Calcium 9.0 mg/dL (8.5-10.1) 12/17/22 14:16 Total Bilirubin 0.2 mg/dL (0.2-1.0) 12/17/22 14:16 AST 17 U/L (15-37) 12/17/22 14:16 ALT 20 U/L (14-59) 12/17/22 14:16 Alkaline Phosphatase 136 U/L (46-116) H 12/17/22 14:16 Total Protein 7.1 g/dL (6.4-8.2) 12/17/22 14:16 Albumin 2.9 g/dL (3.4-5.0) L 12/17/22 14:16 Ur Random Creatinine 61.58 mg/dL 12/17/22 13:40 U Random Total Protein 18.0 mg/dL 12/17/22 13:40 U [place] Prot/Creat Ratio 0.29 12/17/22 13:40 Patient ABO/Rh O Positive 12/17/22 14:16 Antibody Screen NEGATIVE 12/17/22 14:16 Results Hemoglobin/Hematocrit: Hgb Cancelled 12/17/22 Unknown Hct Cancelled 12/17/22 Unknown Abnormal Lab Findings: Abnormal Labs 12/17/22 12/17/22 14:16 14:16 WBC 13.33 H RBC 3.82 L Hct 33.9 L Plt Count 401 H BUN 4 L Creatinine 0.4 L Alkaline Phosphatase 136 H Albumin 2.9 L
[2022-12-19] VITALS (42 sets, daily range): BP systolic 98–141; BP diastolic 56–87; PULSE 82–131; RESP 16; TEMP 36.5–36.8; O2SAT 97–100
--- NOTE | 2022-12-19 02:46 | W.PM.OBNL1 ---
Date of service: 12/19/22 Time of Service: 02:46 Informed Consent Informed Consent: Induction of Labor (Patient is agreeable to beginning oxytocin titration this morning.) Pelvic Exam Dilation: 5 Effacement (%): 90 Position: OA Cervix Position: mid Consistency: soft Vaginal Exam Presentation: Cephalic Comments: during a contraction the vertex descends to 0 station. After the contraction is completed the vertex returns to -1 station. Contractions Monitor Mode: Internal Contraction Frequency(min): 3 Contraction Duration(sec): 4 IUPC resting tone (mmHg): 20 IUPC peak pressure (mmHg): 80 Fetus A Monitor: External (US) Heart Rate Baseline: 130 Presentation: Cephalic Variability: Moderate (6-25 BPM) Categories: Category I FHR Rhythm: Regular Characteristics: Normal Accelerations: 15 X 15 Decelerations: Variable Recurrence: Intermittent Amniotic Membrane Status: Ruptured Assessment and Plan Assessment and plan (1) Encounter for induction of labor: Status: Acute Assessment and plan: There has been cervical dilation since previous exam. Descent of presenting part with contraction only then return to -1 station. Plan to continue with current dose of Oxytocin and continue to follow descent of presenting part. (2) Gestational HTN: Status: Acute Objective Temp Pulse Resp BP Pulse Ox 98.2 F 123 H 16 141/87 H 98 12/18/22 23:32 12/19/22 02:32 12/18/22 09:00 12/19/22 02:32 12/18/22 21:14 Laboratory Results WBC Cancelled 12/17/22 Unknown RBC Cancelled 12/17/22 Unknown Hgb Cancelled 12/17/22 Unknown Hct Cancelled 12/17/22 Unknown MCV Cancelled 12/17/22 Unknown MCH Cancelled 12/17/22 Unknown MCHC Cancelled 12/17/22 Unknown RDW Cancelled 12/17/22 Unknown Plt Count Cancelled 12/17/22 Unknown MPV Cancelled 12/17/22 Unknown Sodium 136 mmol/L (136-145) 12/17/22 14:16 Potassium 3.7 mmol/L (3.5-5.1) 12/17/22 14:16 Chloride 104 mmol/L (98-107) 12/17/22 14:16 Carbon Dioxide 21.9 mmol/L (21.0-32.0) 12/17/22 14:16 Anion Gap 10.1 mmol/L (3-11) 12/17/22 14:16 BUN 4 mg/dL (7-18) L 12/17/22 14:16 Creatinine 0.4 mg/dL (0.55-1.02) L 12/17/22 14:16 Est GFR (CKD-EPI 2020) 143.42 (mL/min/1.73m2) 12/17/22 14:16 Glucose 93 mg/dL (74-106) 12/17/22 14:16 Calcium 9.0 mg/dL (8.5-10.1) 12/17/22 14:16 Total Bilirubin 0.2 mg/dL (0.2-1.0) 12/17/22 14:16 AST 17 U/L (15-37) 12/17/22 14:16 ALT 20 U/L (14-59) 12/17/22 14:16 Alkaline Phosphatase 136 U/L (46-116) H 12/17/22 14:16 Total Protein 7.1 g/dL (6.4-8.2) 12/17/22 14:16 Albumin 2.9 g/dL (3.4-5.0) L 12/17/22 14:16 Ur Random Creatinine 61.58 mg/dL 12/17/22 13:40 U Random Total Protein 18.0 mg/dL 12/17/22 13:40 U [place] Prot/Creat Ratio 0.29 12/17/22 13:40 Patient ABO/Rh O Positive 12/17/22 14:16 Antibody Screen NEGATIVE 12/17/22 14:16 Vital Signs Reviewed: Yes Subjective Patient Reports: New Complaints (suprapubic pain with contractions.) Interval history since last seen: I was called to evaluate pt after IUPC stopped working. On exam the IUPC had slipped out of the cervix and was in the vagina. Oxytocin infusion currently 28mu/min Results Hemoglobin/Hematocrit: Hgb Cancelled 12/17/22 Unknown Hct Cancelled 12/17/22 Unknown Abnormal Lab Findings: Abnormal Labs 12/17/22 12/17/22 14:16 14:16 WBC 13.33 H RBC 3.82 L Hct 33.9 L Plt Count 401 H BUN 4 L Creatinine 0.4 L Alkaline Phosphatase 136 H Albumin 2.9 L
[2022-12-19] MEDS: Ondansetron 4 MG/2 ML VIAL IVP (05:30)
--- NOTE | 2022-12-19 05:45 | W.ANESEPD ---
Epidural/Spinal Daily Note Date Performed: 12/19/22 Assessment Time: 04:41 Patient Location: Obstetrics Catheter Type in Place: Epidural Catheter Dressing Assessment: Dressing intact with good adherence Catheter Assessment: Catheter Labeled and Intact and Functioning Previous Catheter Depth Noted (cm): 12 Current Catheter Depth (cm): 12 Current Medication Infusion: Ropivacaine 0.1% with Fentanyl 2mcg/ml Current Maintenance Infusion Rate (ml/hour): 10 Current PCEA Bolus Dose (ml): 5 Current Pain Score (0-10): 10 Medication Infusion Stopped, Catheter Removal Planned: No Sensory / Motor Block Comments: Motor 5/5. Initially feeling sharp pain in front and rear abdomen. Had hit PCEA button x2. New Bolus Given or Change in Infusion Made: Yes Standard Monitors Applied: Blood Pressure, SpO2 and See EMR for corresponding vital signs Epidural Provider Bolus (Indicate Dose Given): Total bolus dose given in 3-5 ml divided doses and Total Ropivacaine 0.1% with Fentanyl 2mcg/ml Given from pump. (ml) Dose:: 10ml and 5ml Additives (Indicate Dose Given ): None Infusion Medication: No Infusion / No Changes Made Pain Score after Medication Change (0-10): 8 Sensory / Motor Block Comments after Change: Motor is 5/5. No arm/hand/finger paresthesia. Pt. states her front abdominal discomfort is gone, just pressure now but she has a hot spot rear right abdomen. Still very uncomfortable. She has been nauseated throughout per RN, she did vomit x1 and received zofran during this exam. Daily Management Comments: After troubleshooting epidural, no leak, infusing well, no catheter migration. Pitocin is at higher dose and I requested to speak to OB provider for possible cervical exam given that epidural exam did not seem to be what i would expect, even though pt. was previously 5cm at around 0330. Upon exam, pt. is 10cm and ready to push. Epidural seems to be effective and no need for anesthesia in the room. I reminded pt. about PCEA button during stage II. Completed By: Reagan Knight
[2022-12-19] MEDS: Oxytocin/Normal Saline 30 UNIT/500 ML BAG 334 UNITS IV (07:17)
[2022-12-19] MEDS: Acetaminophen 325 MG TAB 650 MG PO ×3 (09:20→20:33)
[2022-12-19] MEDS: Hamamelis Leaf/Glycerin 100 EACH BOX PR (09:20)
[2022-12-19] MEDS: Ibuprofen 600 MG TAB PO ×3 (09:20→21:41)
[2022-12-19] MEDS: Dibucaine 1% 28 GM TUBE TP (09:20)
--- NOTE | 2022-12-19 11:19 | W.ANESPOSTOP ---
Postoperative Evaluation Date, Time and Location Date Performed: 12/19/22 Time Performed: 11:20 Patient Location: Obstetrics Vital Signs Most Recent Imported Vital Signs: Most Recent Vital Signs Temp Pulse Resp BP Pulse Ox 36.8 C 106 H 16 114/78 99 12/19/22 09:30 12/19/22 09:30 12/19/22 09:30 12/19/22 09:30 12/19/22 07:22 Assessment Mental Status: Awake (Alert & Oriented to Patient Baseline) Airway and Respiratory Function: Patent airway with normal (patient baseline) respiratory exam Cardiovascular Function: Hemodynamically Stable Hydration Status: Adequately Hydrated Nausea & Vomiting: No Nausea or Vomiting Pain: Pain is tolerable per patient Peripheral Nerve Block: Patient did not receive a nerve block Postoperative Comments:: Pt. doing well with no concerns.
--- NOTE | 2022-12-19 19:14 | NUR.NOTE ---
Nursing Note:Report received from Loren HARDIN.
[2022-12-19] MEDS: Docusate Sodium 100 MG CAP PO (20:20)
[2022-12-20] MEDS: Acetaminophen 325 MG TAB 650 MG PO (03:02)
[2022-12-20] MEDS: Ibuprofen 600 MG TAB PO (03:03)
[2022-12-20 04:30] VITALS: BP 119/79; PULSE 91; RESP 16; TEMP 36
--- NOTE | 2022-12-20 05:58 | W.OBDELIVERY ---
Date of service: 12/20/22 Time of Service: 05:58 OB Labor/ Delivery Information Baby A Delivery Delivery Method: Spontaneaous Presentation: Cephalic Cephalic Position: Vertex Vertex Position: Left Occipital Anterior Breech Position: N/A Cord Description-Baby A: 3 Vessels Amniotic Fluid: Clear Delivery Outcome: Liveborn Infant Transferred: Remains with Mother Providers Doctor: Maadlyn Perez Precision Lens Technician: Reagan Knight Nurse: Loren Piedra Nurse: Josi Tyson Labor/Delivery Information Number of Babies in Womb: 1 Steroids Given: None Reason Steroids Not Administered: N/A Group Beta Strep: Negative Antibiotics Administered: No Rubella Status: Immune Blood Type: O+ Varicella Immunity: Immune Born En Route: No Maternal Complications: None Shoulder Dystocia: No Stages of Labor Onset of Labor Date: 12/18/22 Onset of Labor Time: 22:02 Complete Dilatation Date: 12/19/22 Complete Dilatation Time: 05:45 Labor - Stage 1 Duration: 7 hours and 43 minutes ROM Baby A: 12/18/22 ROM Baby A: 22:00 ROM Total Time- Baby A: [id number] Delivery Date-Baby A: 12/19/22 Delivery Time-Baby A: 07:16 Labor Stage 2 Duration: 1 hours and 31 minutes Placenta Delivery Date-Baby A: 12/19/22 Placenta Delivery Time-Baby A: 07:21 Labor-Stage 3 Duration: 5 minutes Total Length of Labor-Baby A: 9 hours and 14 minutes Placenta Status: Delivered Baby A Gender: Female Gestational Status: Term (39-41.6 wks) Gestational Age in Weeks/Days: 39 Weeks and 2 Days weight: 7 lb 8.108 oz Length-Baby A: 19.5 in Head Circumference-Baby A: 13.5 in Score-1 Minute Interval(Baby A) Heart Rate-1 minute: 100 BPM or Greater Respiratory Effort- 1 minute: Spontaneous/Strong Cry Muscle Tone-1 minute: Active Movement Reflex Response-1 minute: Prompt Response Color-1 minute: Pallor or Cyanosis Total Score-1 minute: 8 Score-5 Minute Interval(Baby A) Heart Rate- 5 minute: 100 BPM or Greater Respiratory Effort-5 minute: Spontaneous/Strong Cry Muscle Tone-5 minute: Active Movement Reflex Response-5 minute: Prompt Response Color-5 minute: Bluish Hands or Feet Total Score- 5 minute: 9 Procedure Procedures: Cervical Ripening and IUPC Insertion , indication for IUPC: for purpose of titrating Oxytocin infusion. Interventions Pain Management Interventions: Epidural Epidural Placed by:: Reagan Knight Placed at 3cm dilation ../ Induction Indication: Gestational Hypertension, Type of Induction: Artifical Rupture of Membranes, Duval Bulb, Misoprostol administration: Oral and Pitocin, Induction Note: 3 doses of oral Misoprotol. Oxytocin infusion max dose: 28mu/min. During Oxytocin infusion duval bulb was inserted and fell out after 30minutes. AROM performed after balloon fell out and Oxytocin infusion titrated with use of IUPC. .
[2022-12-20 07:20] VITALS: BP 125/88; PULSE 98; RESP 16; TEMP 36.6; O2SAT 99
--- NOTE | 2022-12-20 07:56 | W.PM.OBDISCH ---
Date of service: 12/20/22 Time of Service: 07:56 DS: Diagnosis Discharge Diagnosis (1) Encounter for induction of labor: Status: Acute (2) Gestational HTN: Status: Acute (3) Spontaneous vaginal delivery: Status: Acute Discharge Plan Disposition Patient Disposition: Home Condition: Good Discharge Details Reason For Visit: headache at term Admit Date/Time: 12/19/22 07:38 Admit Provider: Madalyn Perez Attending Provider: Madalyn Perez Primary Care Provider: Unknown,Unknown Hospital Course Hospital Course: female admitted at 39w EGA with mildly elevated BP and complaints of intermittent headache. Labs normal. Decision made to proceed with cervical ripening and move towards deli. very. 3 doses of oral Misoprotol. Oxytocin infusion max dose: 28mu/min. During Oxytocin infusion duval bulb was inserted and fell out after 30minutes. AROM performed after balloon fell out and Oxytocin infusion titrated with use of IUPC. 12/19/22 of viable female who parents intend to name Lanie over 2nd degree laceration. EBL 150cc. course unremarkable. Discharged home PPD1. . Pt will be seen in 2 and 6 week on for follow up. Home Meds and New Rx's Prescriptions: No Action ferrous gluconate 240 mg (27 mg iron) tablet 240 mg PO DAILY magnesium 200 mg tablet 200 mg PO DAILY prenat.vits,yolande,[id number] Tablet 1 tab PO DAILY hydroxyzine pamoate [Vistaril] 50 mg capsule 50 mg PO QHS Qty: 20 1RF Discharge Instructions Stand Alone Forms: BC Instructions, BC Post Vaginal Deliver Activity:: Activity as Tolerated Equipment/Supplies:: No Equipment Needed Diet:: As Tolerated Discharge Orders Discharge Orders: Discharge Order (Routine); Ordered 12/20/22 Ordered By: Madalyn Perez OB:DS Summary Summary Vaginal Delivery Method: Spontaneaous Episiotomy Description: None Laceration Description: Perineal Laceration Extension: Second Degree Contraception Discussed Contraception Discussed: No, Gender-Baby A: Female weight: 7 lb 8.108 oz Status at Discharge Functional status at discharge: independent ambulation Overall status at discharge: patient is progressing back to baseline Mental Status: mental status grossly normal Speech and Movement: speech and movement normal Mood: congruent mood Affect: normal affect Exam Physical Exam Vital signs: Temp Pulse Resp BP Pulse Ox 97.9 F 98 H 16 125/88 99 12/20/22 07:20 12/20/22 07:20 12/20/22 07:20 12/20/22 07:20 12/20/22 07:20 Vital Signs Reviewed: Yes Constitutional Constitutional: no acute distress HEENT Exam HEENT Exam: Normal Neck Exam Neck Exam: Normal Respiratory Exam Respiratory Exam: Normal Cardiovascular Exam Cardiovascular Exam: Normal Abdominal Exam Abdomen: Tender Fundal Exam Fundus: Below Umbilicus and Firm Rectal Exam Rectal Exam: Not Done Extremities Exam Extremity Exam: Normal and Edema (1+, non-pitting) Back/Spine/Pelvis Exam Back Exam: Normal Skin Exam Skin Exam: Normal Neurological Exam Neurological Exam: Normal Psychiatric Exam Psychiatric Exam: Normal PFSH All Active Problems (Updated 12/20/22 @ 07:58 by Madalyn Perez MD) Spontaneous vaginal delivery (Acute) 12/19/22. F. 7lb8oz. Encounter for induction of labor (Acute) Gestational HTN (Acute) Ankle pain, left (Acute) Acute urticaria (Acute) Third trimester (Acute) Second trimester (Acute) Right upper quadrant pain (Acute) Family History (Updated 06/11/22 @ 13:05 by Yoana Marsh CNM) Paternal Aunt Multiple myeloma Maternal Grandmother Diabetes Social History (Updated 06/11/22 @ 13:08 by Yoana Marsh CNM) Smoking/Tobacco Use Status: Never Second Hand Exposure: No Smoking risk assessment performed?: Yes Alcohol Intake: never Drug use: Never Substance use type: does not use What is your relationship status?: How often do you talk on the phone with friends or family?: twice per week How often do you get together with friends or relatives?: twice per week Do you belong to any clubs or organized social groups?: no Panel score (0-1 are the most socially isolated patients): 2 What type of physical activity do you participate in: walking Duration: 15-30 minutes/day Frequency: 3-4 times per week Nadia/Zoroastrian: Confucianism Special nadia needs: No Seatbelt use: always Helmet use: Yes Drive intox or ride w/intox route driver salesperson: Yes Water heater temp set <120 deg: Yes Working smoke detector in home: Yes Fire extinguisher in home: Yes Carbon monox detector in home: Yes Firearms in home: Yes Firearms unloaded and locked: Yes Do you feel safe at home: Yes Do you feel safe in your relationship?: Yes History History 1 Para 0 Hx # Term Pregnancies 0 Multiple births 0 Hx # Pregnancies 0 Ectopic pregnancies 0 AB induced 0 Hx Number of Living Children 0 AB spontaneous 0 Past Pregnancies Del. Date GA/Weeks # Preg Succ Route Wgt Sex Labor Lgth Anesthesia Location Prov Complic 12/11/22 39 No Yes vaginal 7 lb 8 oz Female 17hr [facility] Delivery Date: 12/11/22 Last Updated by: Madalyn Perez MD IOL gestational HTN. Epidural. 2nd degree. Ezequiel Prater DS: Data Vitals/I&O Vitals and I&O: Vital Signs Temperature 97.9 F 12/20/22 07:20 Temperature Source Oral 12/20/22 07:20 Pulse 98 H 12/20/22 07:20 Pulse Rhythm Regular 12/20/22 07:20 Respiratory Rate 16 12/20/22 07:20 Respiratory Depth Normal 12/18/22 19:37 Blood Pressure 125/88 12/20/22 07:20 Blood Pressure Mean 100 12/20/22 07:20 Pulse Oximetry 99 12/20/22 07:20 Oxygen Delivery Method Room Air 12/17/22 14:02 Oxygen Flow Rate 0 12/17/22 14:02 Pain Level 1 12/20/22 04:30 Comment Pt reports decreased vaginal bleeding 12/20/22 04:30 Intake & Output 12/19/22 12/19/22 12/20/22 11:59 23:59 11:59 Intake Total 373.1 / 1706.1 1333 / 1706.1 Output Total 1050 / 2200 1150 / 2200 Balance -676.9 / -493.9 183 / -493.9 Intake: IV 373.1 / 1706.1 1333 / 1706.1 Output: Urine 1000 / 2150 1150 / 2150 Emesis 50 / 50 Other: Urine Color Light Yoselyn Yellow Urine Appearance Clear Comment Straight cath as pt unable to void independently. Bladder scan >500 prior to cathing.
== END 2022-12-20 14:20 | disposition home or self-care (01) | DRG 807 ==
LOC: OBS 16:56 → BCD 12-21 10:46 → OBS 12-21 10:46
PROVIDERS: Admitting Provider Obstetrics & Gynecology Gynecology; Visit Provider Obstetrics & Gynecology Gynecology
DX: O13.4 Gestational [pregnancy-induced] hypertension without significant proteinuria, complicating childbirth; Z37.0 Single live birth; Z3A.39 39 weeks gestation of pregnancy; O70.1 Second degree perineal laceration during delivery
CPT/HCPCS: 59200; 80053; 85027; 86850; 86900; 86901; 59025; 82565; 84156; J2405; J3490

== ENCOUNTER → 2023-05-31 01:58 | Outpatient (CLI) | payer MEDICAID, SELFPAY ==
--- NOTE | 2023-05-31 08:45 | DI.US_ITS ---
Exam(s) US OB 1ST TRIMESTER EXAM: US OB 1ST TRIMESTER CLINICAL HISTORY: unknown LMP, ,Z32.01. COMPARISON: No exams were available for comparison TECHNIQUE: Transabdominal Transvaginal first trimester obstetrical ultrasound performed. FINDINGS: Sonographic images demonstrate a single intrauterine gestation. A yolk sac and pole are seen. No free fluid identified. Both ovaries appear sonographically normal. Pelvic Measurments Uterus: 8.0 x 5.4 x 5.3 cm Rt Ovary: 4.2 x 2.6 x 2.8 cm, corpus luteum cyst Lt Ovary: 3.4 x 2.3 x 2.9 cm Biometry CRL: 6.3cm Composite Age: 6 weeks 3 days EDC by US: 21 January 2024 Heart Rate: 141BPM IMPRESSION: Single live intrauterine gestation as above. DATA REPOSITORY:
== END ==
PROVIDERS: PCP Family Medicine; Visit Provider Obstetrics & Gynecology Gynecology
DX: Z32.01 Encounter for pregnancy test, result positive (principal)
CPT/HCPCS: 76801

== ENCOUNTER 2023-07-06 03:05 | Outpatient (CLI) | payer MEDICAID, SELFPAY ==
[2023-07-06 14:54] LABS: Panorama Kit Sent via Fed Ex
[2023-07-06 15:04] LABS: Abs Immature Grans 0.03 10^3/uL (0.0-0.06); Absolute Basophil Count 0.02 10^3/uL (0.0-0.2); Absolute Eosinophil Count 0.19 10^3/uL (0.0-0.7); Absolute Lymphocyte Count 1.56 10^3/uL (1.2-3.4); Absolute Neutrophil Count 6.62 10^3/uL (1.2-6.7); Basophils % 0.2; Eosinophils % 2.1; HCT 35.3 % (36.0-46.0); HGB 11.9 g/dL (11.2-15.7); Immature Grans % 0.3; Lymphocytes % 17.5; MCH 28.7 pg (27.0-33.0); MCHC 33.7 % (32.0-36.0); MCV 85 fL (80-95); MPV 9.4 fL (8.0-11.0); Monocytes % 5.6; Neutrophils % 74.3; Platelet Count 377 10^3/uL (130-400); RBC 4.14 10^6/uL (3.93-5.22); RDW 13.2 % (11.7-14.6); RDW-SD 40.2 fL; WBC 8.92 10^3/uL (4.4-10.8)
[2023-07-06 15:15] LABS: Glucose,1 Hr (Glucola) 96 mg/dL (80-140)
[2023-07-06 15:42] LABS: ALT 18 U/L (14-59); AST 13 U/L (15-37); Albumin 3.6 g/dL (3.4-5.0); Alkaline Phosphatase 74 U/L (46-116); Anion Gap 7.6 mmol/L (3-11); BUN 7 mg/dL (7-18); Bilirubin, Total 0.2 mg/dL (0.2-1.0); CO2 27.4 mmol/L (21.0-32.0); CREATININE 0.5 mg/dL (0.55-1.02); Calcium 9.3 mg/dL (8.5-10.1); Chloride 101 mmol/L (98-107); Estimated GFR 135.91 (mL/min/1.73m2); Glucose 98 mg/dL (74-106); Potassium 3.8 mmol/L (3.5-5.1); Sodium 136 mmol/L (136-145); Total Protein 7.4 g/dL (6.4-8.2)
[2023-07-07 08:58] LABS: Hepatitis B Surface Ag Negative (Negative)
[2023-07-07 09:37] LABS: HIV-1/2 Ag & Ab Screen Negative (Negative)
[2023-07-07 09:56] LABS: Hepatitis C Ab w Rflx HCV PCR Negative (Negative)
[2023-07-07 10:36] LABS: Rubella IgG Ab (UVM) Positive (See Note); Varicella IgG Antibody Positive (See Note)
== END 2023-07-06 03:06 | disposition home or self-care (01) ==
LOC: LBO 03:05
PROVIDERS: PCP Family Medicine; Visit Provider Advanced Practice Midwife
DX: Z34.91 Encounter for supervision of normal pregnancy, unspecified, first trimester
CPT/HCPCS: 36415; 80053; 82950; 86787; 86803; 86850; 86900; 86901; 87340; 87389; 85025; 86762

== ENCOUNTER 2023-07-06 14:05 | Outpatient (REF) | payer MEDICAID, SELFPAY ==
[2023-07-06 15:26] LABS: *AMPHETAMINES SCREEN URINE Negative (Negative); *BARBITURATES SCREEN URINE Negative (Negative); *BENZODIAZEPINES SCREEN URINE Negative (Negative); Cannabinoids THC Negative (Negative); Cocaine Screen,Urine Negative (Negative); METHADONE URINE SCREEN Negative (Negative); OPIATES URINE SCREEN Negative (Negative)
[2023-07-06 15:30] LABS: Tricyclic Antidepressants Negative (Negative)
[2023-07-08 12:13] LABS: Chlamydia Result Negative (Negative); GC Result Negative (Negative)
[2023-07-13 09:33] LABS: Buprenorphine Negative ng/mL (Cutoff: 5.0); Norbuprenorphine Negative ng/mL (Cutoff: 2.5)
== END 2023-07-06 14:06 | disposition home or self-care (01) ==
LOC: LBN 14:05
PROVIDERS: PCP Family Medicine; Visit Provider Advanced Practice Midwife
DX: Z34.91 Encounter for supervision of normal pregnancy, unspecified, first trimester (principal)
CPT/HCPCS: 80307; 80348; 87491; 87591; 87086

== ENCOUNTER → 2023-09-07 02:33 | Outpatient (CLI) | payer MEDICAID, SELFPAY ==
--- NOTE | 2023-09-07 07:30 | DI.US_ITS ---
Exam(s) US OB 2-3 TRIMESTER EXAM: US OB 2-3 TRIMESTER CLINICAL HISTORY: ,Z34.90. TECHNIQUE: Transabdominal obstetrical ultrasound performed. COMPARISON: US US OB 1ST TRIMESTER from 05/31/2023 FINDINGS: Number of fetuses: 1 position: VARIED heart rate: 153bpm Placental location: There is a grade 1 fundal placenta. The placental tip is 8.6 cm from the interna l os. No evidence of previa. Amniotic fluid index: Amount of fluid is within normal limits. ANATOMICAL SURVEY: Within normal limits. BIOMETRIC DATA: BPD: 5.05cm, 21weeks 2days HC: 19.65cm, 21weeks 6days AC: 17.61cm, 22weeks 4days FL: 3.4cm, 20weeks 5days Cisterna magna: 5.5mm Cerebellum: 2.01cm Lateral ventricle: 5.5 mm EFW: 443.36g, 1lb 0.14oz, 97% Composite Age: 21weeks 4days NAKITA: 01/14/2024 Heart Rate: 153bpm ANATOMICAL SURVEY: Four-chambered heart: Unremarkable. RVOT: Unremarkable. LVOT: Unremarkable. Left-sided stomach: Unremarkable. urinary bladder: Unremarkable. Bilateral kidneys: Unremarkable. Three-vessel cord: Unremarkable. Cord insertion: Unremarkable. Posterior fossa: Unremarkable. ventricles: Unremarkable. nose/lips: Unremarkable. Palate: Unremarkable. spine: Unremarkable. Two arms and two legs: Unremarkable. There is a question of a hallux varus deformity of the left johnie t. IMPRESSION: 1. Single live intrauterine gestation as above. 2. There is a question of a hallux varus deformity of the left foot. 3. Otherwise unremarkable anatomic survey. DATA REPOSITORY:
== END ==
PROVIDERS: PCP Family Medicine; Visit Provider Advanced Practice Midwife
DX: Z34.92 Encounter for supervision of normal pregnancy, unspecified, second trimester (principal)
CPT/HCPCS: 76805

== ENCOUNTER 2023-11-07 05:24 | Outpatient (CLI) | payer MEDICAID, SELFPAY ==
[2023-11-07 09:49] LABS: Abs Immature Grans 0.08 10^3/uL (0.0-0.06); Absolute Basophil Count 0.02 10^3/uL (0.0-0.2); Absolute Eosinophil Count 0.17 10^3/uL (0.0-0.7); Absolute Lymphocyte Count 1.79 10^3/uL (1.2-3.4); Absolute Monocyte Count 0.59 10^3/uL (0.1-0.8); Absolute Neutrophil Count 6.81 10^3/uL (1.2-6.7); Basophils % 0.2; Eosinophils % 1.8; HCT 31.7 % (36.0-46.0); Immature Grans % 0.8; Lymphocytes % 18.9; MCH 30.6 pg (27.0-33.0); MCHC 34.7 % (32.0-36.0); MCV 88 fL (80-95); MPV 9.5 fL (8.0-11.0); Monocytes % 6.2; Neutrophils % 72.1; Platelet Count 342 10^3/uL (130-400); RDW 13.2 % (11.7-14.6); RDW-SD 42.6 fL; WBC 9.46 10^3/uL (4.4-10.8)
[2023-11-07 10:06] LABS: Glucose,1 Hr (Glucola) 76 mg/dL (80-140)
== END 2023-11-07 05:25 | disposition home or self-care (01) ==
PROVIDERS: Obstetrics & Gynecology; PCP Family Medicine; Visit Provider Obstetrics & Gynecology Gynecology
DX: O09.293 Supervision of pregnancy with other poor reproductive or obstetric history, third trimester (principal); Z3A.28 28 weeks gestation of pregnancy
CPT/HCPCS: 36415; 82950; 85025

== ENCOUNTER 2023-12-27 14:17 | Outpatient (REF) | payer MEDICAID, SELFPAY | END 2023-12-27 14:18 | disposition home or self-care (01) | LOC: LBN 14:17 | PROVIDERS: PCP Family Medicine; Visit Provider Obstetrics & Gynecology | DX: Z34.90 Encounter for supervision of normal pregnancy, unspecified, unspecified trimester (principal) | CPT/HCPCS: 87081 ==

== ENCOUNTER 2024-01-05 08:36 | Outpatient (CLI) | payer MEDICAID, SELFPAY ==
[2024-01-05 09:56] VITALS: BP 138/90; PULSE 103
--- NOTE | 2024-01-05 10:01 | PGE_ITS ---
Date of Service Date of service: 01/05/24 Time of Service: 10:02 Assessment and Plan Assessment and plan (1) : Status: Acute Assessment and plan: Late with recent suspected viral gastroenteritis. Currently cramping. Reactive, category 1 nonstress test with a heart rate baseline of 150. Irregular uterine activity. Will check laboratory studies. Cervical examination as needed. All questions answered (2) Abdominal cramping: Status: Acute Subjective Subjective Interval history since last seen: Patient seen on the center for evaluation. Earlier this week, she had an episode of diarrhea with abdominal cramping. Since that time, over the night last night, she has had significant abdominal and low back discomfort and crampiness. Baby's been moving and active. Her p.o. intake has been somewhat limited. She is here for evaluation and will have NST, CBC, CMP, IV hydration. Urine dip was essentially negative with the exception of high specific gravity. Will continue to monitor. Cervical exam as needed. All questions answered Objective Last Vital Signs Pulse 103 H 01/05/24 09:56 BP 138/90 01/05/24 09:56 Time Spent with Patient Time Spent with Patient: 25-34 minutes Time was spent: preparing to see the patient(eg.review tests), obtaining and/or reviewing separately otained hiistory, ordering medications,tests, procedures, referring, communicating with other health career technical counselor and indepentently interpreting results
[2024-01-05 10:31] VITALS: BP 130/90; PULSE 103; TEMP 36.6
[2024-01-05 10:49] LABS: Abs Immature Grans 0.06 10^3/uL (0.0-0.06); Absolute Basophil Count 0.03 10^3/uL (0.0-0.2); Absolute Eosinophil Count 0.07 10^3/uL (0.0-0.7); Absolute Lymphocyte Count 1.24 10^3/uL (1.2-3.4); Absolute Monocyte Count 0.82 10^3/uL (0.1-0.8); Absolute Neutrophil Count 7.36 10^3/uL (1.2-6.7); Basophils % 0.3 %; Eosinophils % 0.7 %; HCT 34.2 % (36.0-46.0); HGB 11.7 g/dL (11.2-15.7); Immature Grans % 0.6 %; Lymphocytes % 12.9 %; MCH 30.1 pg (27.0-33.0); MCHC 34.2 % (32.0-36.0); MCV 88 fL (80-95); MPV 10.3 fL (8.0-11.0); Monocytes % 8.6 %; Neutrophils % 76.9 %; Platelet Count 311 10^3/uL (130-400); RBC 3.89 10^6/uL (3.93-5.22); RDW 13.2 % (11.7-14.6); RDW-SD 42.2 fL; WBC 9.58 10^3/uL (4.4-10.8)
[2024-01-05 11:04] LABS: ALT 28 U/L (14-59); AST 24 U/L (15-37); Albumin 2.9 g/dL (3.4-5.0); Alkaline Phosphatase 133 U/L (46-116); Anion Gap 10.9 mmol/L (3-11); BUN 4 mg/dL (7-18); Bilirubin, Total 0.2 mg/dL (0.2-1.0); CO2 24.1 mmol/L (21.0-32.0); CREATININE 0.4 mg/dL (0.55-1.02); Calcium 8.6 mg/dL (8.5-10.1); Chloride 103 mmol/L (98-107); Estimated GFR 142.54 (mL/min/1.73m2); Glucose 85 mg/dL (74-106); Potassium 3.9 mmol/L (3.5-5.1); Sodium 138 mmol/L (136-145); Total Protein 7.1 g/dL (6.4-8.2)
--- NOTE | 2024-01-05 13:19 | W.OBNST ---
Date of service: 01/05/24 Time of Service: 13:19 NST Evaluation Reason for NST Reasons for Nonstress Test: OTHER, SEE COMMENT Reason for NST Other: not feeling well Gestational Age Gestational Age in Weeks and Days: 37 Weeks and 5Days Test and Monitor Explained Test/Monitor Explained: Test Explained Vital Signs Blood Pressure: 130/90 Pulse: 103 Temperature: 97.9 F Urine Results Urine Protein: Negative Urine Ketones: Negative Urine Glucose: Negative Urine Blood: Negative NST Information Date on Monitor: 01/05/24 Time on Monitor: 09:50 Date off Monitor: 01/05/24 Time off Monitor: 10:33 Total Time on Monitor: 43 NST Interventions: IV Fluids NST Evaluation Patient States Movement: Present FHR Baseline: 145 Variability: Moderate 6-25 bpm Accelerations: 15x15 Decelerations: None NST Results: Reactive NST Results Other: Pt to remain to receive IV fluids Note Ultrasound Done: N/A. NST Note Note: Patient seen and evaluated in the center due to uterine crampiness throughout the night last night and today. She recently had a what appears to be viral gastroenteritis. She had IV hydration, laboratory studies were performed. She had irregular contractions on the monitor. She is a category 1 reactive nonstress test. Her cervix is fingertip, 50%, -2. She was offered option of staying with rest, versus discharge home. She opted to be discharged home. Precautions were given NST Reviewed and Verified by: Krystyna Wilburn
[2024-01-05 13:20] VITALS: BP 130/90; PULSE 103; TEMP 36.6
== END 2024-01-05 13:20 | disposition home or self-care (01) ==
LOC: BCD 08:37 → OBS 09:39
PROVIDERS: PCP Family Medicine; Visit Provider Obstetrics & Gynecology
DX: O26.893 Other specified pregnancy related conditions, third trimester (principal); R10.9 Unspecified abdominal pain; Z3A.37 37 weeks gestation of pregnancy
CPT/HCPCS: 59025; 80053; 86850; 86900; 86901; 96360; 85025; G0378

== ENCOUNTER 2024-01-18 20:16 | Inpatient (IN) | payer MEDICAID, SELFPAY ==
[2024-01-18 20:23] VITALS: BP 128/75; PULSE 89
[2024-01-18 20:33] VITALS: BP 128/75; PULSE 89; RESP 16; TEMP 36.8
[2024-01-18 20:34] VITALS: PULSE 88; O2SAT 98
[2024-01-18 20:44] LABS: HGB 11.2 g/dL (11.2-15.7); MCH 30.4 pg (27.0-33.0); MCHC 33.9 % (32.0-36.0); MCV 89 fL (80-95); MPV 10.4 fL (8.0-11.0); Platelet Count 319 10^3/uL (130-400); RBC 3.69 10^6/uL (3.93-5.22); RDW-SD 42.3 fL; WBC 13.69 10^3/uL (4.4-10.8)
--- NOTE | 2024-01-18 20:50 | HPE_ITS ---
Date of service: 01/18/24 Time of Service: 20:51 OB-HPI Labor/Delivery History of Present Illness Reason for Visit: Induction of labor Chief Complaint: Scheduled Induction of Labor Indication for Induction: Other (maternal discomfort); Maternal Discomfort (Prodromal contractions secondary to inadequate hydration, diarrhea) , Associated Signs and Symptoms of Maternal Discomfort: diarrhea, uterine contractions.. NAKITA Calculator Estimated Delivery Date Method Current WG Current Estimate 01/24/24 Ultrasound #1 39w 1d Other Estimates 12/09/23 LMP (Uncertain) 45w 5d History of Present Expected Delivery Route/Plan - MD PATTON- Jalen Nielson Doesn't want to know gender prior to Specific Issues/Plan 1. Hx of cholelithiasis. No surgery. Right upper quadrant pain, surgery referral 04/2023, no evidence of cholecystitis 2. History of preeclampsia and IOL - ASA daily recommended 3. CfDNA testing 07/06: low risk x5, gender not reported 4. BMI 34.8- early & 28wk GTT normal 5. Efren have cousins with heart defects - decline Level 2 US 6. Tandem nursing 7. Possible Hallux Vallus deformity of left foot on anatomy US, will refer PP as indicated, patient aware. Per Peds, OK to wait for after delivery for referral to orthopedics Narrative: 1st trimester BP 128/68, 3rd trimester BP 130/80. Total # of PNV:14. TWlbs S=D. Informed Consent Informed Consent: Induction of Labor and Risk,Benefits,Alternatives Discussed (verbal consent.) Review of Systems Narrative: Frequency of contractions has decreased in past week. More comfortable. Agrees to IOL. Constitutional Constitutional: Reports fatigue Cardiovascular Cardiovascular: Reports pedal edema Respiratory Respiratory: Reports system reviewed and no additional complaints, except as do cumented Gastrointestinal Gastrointestinal: Reports change in stool character (loose stools.) Genitourinary Genitourinary: Reports system reviewed and no additional complaints, except as documented Musculoskeletal Musculoskeletal: Reports system reviewed and no additional complaints, except as documented Neurologic Neurologic: Reports system reviewed and no additional complaints, except as documented Psychiatric Psychiatric: Reports system reviewed and no additional complaints, except as documented Endocrine Endocrine: Reports fatigue PFSH All Active Problems (Updated 01/06/24 @ 00:05 by RON BELTRE) Abdominal cramping (Acute) Sciatic pain (Acute) BMI 34.0-34.9,adult (Acute) History of pre-eclampsia in prior , currently (Acute) Right upper quadrant pain (Acute) (Acute) Medical History (Updated 01/06/24 @ 00:05 by RON BELTRE) Cholelithiasis Perineal discomfort in female granulation tissue at site of 12/19/22 perineal laceration and repair. Ankle pain, left Acute urticaria Family History (Updated 07/06/23 @ 13:52 by Yoana Sabillon CNM) Paternal Aunt Multiple myeloma Maternal Grandmother Diabetes Maternal Cousin Heart defect Social History (Updated 06/07/23 @ 19:35 by Madalyn Perez MD) Smoking/Tobacco Use Status: Never Second Hand Exposure: No Smoking risk assessment performed?: Yes Alcohol Intake: never Drug use: Never Substance use type: does not use Household members: spouse, children and other Details: JigarJalenKandis Housing: house Number of Children: 1 current occupation: homemaker. What is your relationship status?: How often do you talk on the phone with friends or family?: twice per week How often do you get together with friends or relatives?: twice per week Do you belong to any clubs or organized social groups?: no Panel score (0-1 are the most socially isolated patients): 2 What type of physical activity do you participate in: walking Duration: 15-30 minutes/day Frequency: 3-4 times per week Nadia/Congregational: Restoration Special nadia needs: No Seatbelt use: always Helmet use: Yes Drive intox or ride w/intox local tanker truck driver: Yes Water heater temp set <120 deg: Yes Working smoke detector in home: Yes Fire extinguisher in home: Yes Carbon monox detector in home: Yes Firearms in home: Yes Firearms unloaded and locked: Yes Do you feel safe at home: Yes Do you feel safe in your relationship?: Yes History History 2 Para 1 Hx # Term Pregnancies 1 Multiple births 0 Hx # Pregnancies 0 Ectopic pregnancies 0 AB induced 0 Hx Number of Living Children 1 AB spontaneous 0 Past Pregnancies Del. Date GA/Weeks # Preg Succ Route Wgt Sex Labor Lgth Anesth esia Location Prov [facility] 12/11/22 39 No Yes vaginal 7 lb 8 oz Female [facility]hr [facility] Delivery Date: 12/11/22 Last Updated by: Madalyn Perez MD IOL gestational HTN. Epidural. 2nd degree. Ezequiel Mora Allergies and Home Medications Allergies Allergy/AdvReac Type Severity Reaction Status Date / Time No Known Allergies Allergy Verified 01/16/24 08:47 Home Medications Medication Instructions Recorded Confirmed Type ferrous sulfate 325 mg (65 mg 325 mg PO DAILY 01/28/23 01/18/24 History iron) tablet aspirin 81 mg tablet,delayed 81 mg PO DAILY #45 tabs 07/06/23 01/18/24 Rx release vitamin with calcium 1 tab PO DAILY #90 tabs 07/06/23 01/18/24 Rx no.72-iron 27 mg-folic acid 1 mg tablet zolpidem 5 mg tablet (Ambien) 5 mg PO QHS #2 tabs 01/05/24 01/18/24 Rx Exam Physical Exam Vital signs: Temp Pulse Resp BP Pulse Ox 98.2 F 88 16 128/75 98 01/18/24 20:33 01/18/24 20:34 01/18/24 20:33 01/18/24 20:33 01/18/24 20:34 Vital Signs Reviewed: Yes Narrative: Labs pending Constitutional Constitutional: no acute distress Detailed Labor and Delivery Exam Yeager Score: Cervical Points Exam 0 1 2 3 Dilation Closed 1-2cm 3-4 cm 5-6cm Effacement 0-30% 40-50% 60-70% 80% Consistency Firm Medium Soft Station -3 -2 -1,0 +1,+2 Position Posterior Mid Anterior Amniotic Membrane Status: Intact Contraction Frequency(min): occasional Contraction Intensity: Mild Comments: SVE not repeated. She was examined in the office earlier this week and her cervix was 1cm dilated. Fetus A Heart Rate Baseline: 140 Monitor Accelerations: 15 X 15 Monitor Decelerations: None Variability: Moderate (6-25 BPM) Presentation: Cephalic (by leopolds) Categories: Category I Est. Weight: 8 lb 6.041 oz Est. Weight: 3800gm HEENT Exam HEENT Exam: Normal Neck Exam Neck Exam: Normal Chest/Brest/Axilla Exam Chest Exam: Not Done Respiratory Exam Respiratory Exam: Normal Cardiovascular Exam Cardiovascular Exam: Normal Abdominal Exam Abdominal Exam: Normal (no RUQ pain, no focal tenderness) Rectal Exam Rectal Exam: Not Done Exam Exam: Not Done Extremities Exam Extremities Exam: Normal (1+ non-pitting LE edema bilaterally. 1 beat of clonus bilaterally) Back/Spine/Pelvis Exam Back Exam: Not Done Pelvis Adequate: Yes (s/p previous vaginal delivery.) Skin Exam Skin Exam: Normal Neurological Exam Neurological Exam: Normal Psychiatric Exam Psychiatric Exam: Normal Results Results Group Beta Strep: Negative Blood Type: O+ Rubella Status: Immune Varicella Immunity: Immune Risk Assessment Risk for Shoulder Dystocia Historical/Initial OB: POSITIVE FOR: Pre- BMI>30; NEGATIVE FOR: Pelvic Abnormality, Previous Shoulder Dystocia or Previous Macrosomia Risk for Pre-Eclampsia Date Initiated/Initials: 07/06/23 Yes, if one or more: POSTIVE FOR: Hx Pre-E/Gest HTN; NEGATIVE FOR: Chronic HTN, Multiple Gestation, Pre-gestational DM, Renal Disease, Systemic Lupus or APA Syndrome Yes, if 2 or more: POSITIVE FOR: BMI>30; NEGATIVE FOR: Nulliparity, Age>= 35 yrs, >10yr btwn pregnancies, ethinicty, Mother/Sister w/ Pre-E or Previous IUGR Risk for Post- Hemorrhage Initial: NEGATIVE FOR: Multiple Gestation, Previous PPH, Known Clotting Deficiency, Grand Multiparity or Anticoagulation Counseled re: Active Management: Yes Risks Reviewed Risks Reviewed Upon Admission: Yes
[2024-01-18] MEDS: miSOPROStol 25 MCG TAB PO (20:51)
[2024-01-18 22:32] VITALS: PULSE 83; O2SAT 98
[2024-01-18 22:51] VITALS: BP 102/56; PULSE 82; TEMP 37
[2024-01-19] VITALS (32 sets, daily range): BP systolic 101–133; BP diastolic 59–83; PULSE 75–117; RESP 18; TEMP 36.4–36.8; O2SAT 84–99
[2024-01-19] MEDS: miSOPROStol 25 MCG TAB PO (00:52)
[2024-01-19] MEDS: Lactated Ringers 1,000 ML 125 ML IV ×2 (10:39→15:31)
[2024-01-19] MEDS: Oxytocin/Normal Saline 30 UNITS/500 ML BAG 6 UNITS IV (10:58)
--- NOTE | 2024-01-19 11:25 | W.PM.OBNL1 ---
Date of service: 01/19/24 Time of Service: 11:15 Informed Consent Informed Consent: Induction of Labor and Risk,Benefits,Alternatives Discussed (verbal consent.) Pelvic Exam Dilation: 3 Effacement (%): 80 station: -2 Fetus A Monitor: Telemetry Heart Rate Baseline: 140 Variability: Moderate (6-25 BPM) Categories: Category I Accelerations: 15 X 15 Decelerations: None Amniotic Membrane Status: Ruptured Rupture Method: Artifical Amniotic Fluid: Clear Amount: moderate Date of Membrane Rupture: 01/19/24 Time of Membrane Rupture: 11:10 Assessment and Plan Assessment and plan (1) History of pre-eclampsia in prior , currently : Status: Acute Assessment and plan: Pt undergoing induction of labor at 39.2wks. She is on pitocin with irregular mild contractions. She underwent AROM with moderate clear fluid. Will continue pitocin. Objective Abnormal lab results 01/18/24 Range/Units 20:35 WBC 13.69 H (4.4-10.8) 10^3/uL RBC 3.69 L (3.93-5.22) 10^6/uL Hct 33.0 L (36.0-46.0) % Temp Pulse Resp BP Pulse Ox 98.2 F 88 16 115/65 97 01/19/24 11:05 01/19/24 10:48 01/18/24 20:33 01/19/24 10:48 01/19/24 02:04 Laboratory Results WBC 13.69 10^3/uL (4.4-10.8) H 01/18/24 20:35 RBC 3.69 10^6/uL (3.93-5.22) L 01/18/24 20:35 Hgb 11.2 g/dL (11.2-15.7) 01/18/24 20:35 Hct 33.0 % (36.0-46.0) L 01/18/24 20:35 MCV 89 fL (80-95) 01/18/24 20:35 MCH 30.4 pg (27.0-33.0) 01/18/24 20:35 MCHC 33.9 % (32.0-36.0) 01/18/24 20:35 RDW 13.0 % (11.7-14.6) 01/18/24 20:35 Plt Count 319 10^3/uL (130-400) 01/18/24 20:35 MPV 10.4 fL (8.0-11.0) 01/18/24 20:35 ABO/Rh O Positive 01/18/24 20:35 Antibody Screen NEGATIVE 01/18/24 20:35 Vital Signs Reviewed: Yes Results Hemoglobin/Hematocrit: Hgb 11.2 g/dL (11.2-15.7) 01/18/24 20:35 Hct 33.0 % (36.0-46.0) L 01/18/24 20:35 Abnormal Lab Findings: Abnormal Labs 01/18/24 20:35 WBC 13.69 H RBC 3.69 L Hct 33.0 L
--- NOTE | 2024-01-19 12:17 | W.PM.PROGNOT ---
Date of Service Date of service: 01/19/24 Time of Service: 07:30 Assessment and Plan Assessment and plan (1) Encounter for induction of labor: Status: Acute Assessment and plan: Will proceed with oxytocin augmentation of labor. Continue to anticipate . Subjective Subjective Patient reports: no new complaints Interval history since last seen: Pt's 0400 dose of PO Misoprostil was held secondary issues on Center. Pt reports some contractions during the night. Overall does not feel that she is in labor. Exam Const General: cooperative and comfortable Nutritional Appearance: obese Orientation: alert, awake and oriented x3 Resp Effort & Inspection: normal respiratory effort GI Inspection: normal to inspection Palpation: soft (gravid.) and nontender Rectal Exam - female: deferred Manual OB Exam: dilated 2, effaced 50% and station -2 Other: SVE performed. Plan made with pt to proceed with oxytocin augmentation of labor Skin General skin exam: no rashes or lesions noted Extrem General: pedal edema (non-pitting. ) bilaterally Psych Appearance: grossly normal Mental Status: mental status grossly normal Speech and Movement: speech and movement normal Objective Last Vital Signs Temp 98.2 F 01/19/24 11:05 Pulse 88 01/19/24 10:48 Resp 16 01/18/24 20:33 BP 115/65 01/19/24 10:48 Pulse Ox 97 01/19/24 02:04 Laboratory Results - last 24 hr 01/18/24 20:35 WBC 13.69 H RBC 3.69 L Hgb 11.2 Hct 33.0 L MCV 89 MCH 30.4 MCHC 33.9 RDW 13.0 Plt Count 319 MPV 10.4 ABO/Rh O Positive Antibody Screen NEGATIVE Time Spent with Patient Time Spent with Patient: <25 minutes Time was spent: preparing to see the patient(eg.review tests) and obtaining and/or reviewing separately [facility]
--- NOTE | 2024-01-19 17:24 | W.PM.OBNL1 ---
Date of service: 01/19/24 Time of Service: 17:24 Informed Consent Informed Consent: Induction of Labor and Risk,Benefits,Alternatives Discussed (verbal consent.) Pelvic Exam Dilation: 8 Effacement (%): 90 station: 0 Cervix Position: mid Consistency: soft Vaginal Exam Presentation: Cephalic Contractions Monitor Mode: External Contraction Frequency(min): q2-4 Contraction Duration(sec): 50-60 Intensity: Moderate/Strong Fetus A Monitor: External (US) Heart Rate Baseline: 150 Presentation: Cephalic Variability: Moderate (6-25 BPM) Categories: Category I FHR Rhythm: Regular Characteristics: Normal Accelerations: 15 X 15 Decelerations: None Amniotic Membrane Status: Ruptured Assessment and Plan Assessment and plan (1) Encounter for induction of labor: Status: Acute Assessment and plan: Patient progressing in labor. Will continue current management. Objective Abnormal lab results 01/18/24 Range/Units 20:35 WBC 13.69 H (4.4-10.8) 10^3/uL RBC 3.69 L (3.93-5.22) 10^6/uL Hct 33.0 L (36.0-46.0) % Temp Pulse Resp BP Pulse Ox 98.2 F 77 16 116/63 99 01/19/24 11:05 01/19/24 16:10 01/18/24 20:33 01/19/24 16:10 01/19/24 14:29 Laboratory Results WBC 13.69 10^3/uL (4.4-10.8) H 01/18/24 20:35 RBC 3.69 10^6/uL (3.93-5.22) L 01/18/24 20:35 Hgb 11.2 g/dL (11.2-15.7) 01/18/24 20:35 Hct 33.0 % (36.0-46.0) L 01/18/24 20:35 MCV 89 fL (80-95) 01/18/24 20:35 MCH 30.4 pg (27.0-33.0) 01/18/24 20:35 MCHC 33.9 % (32.0-36.0) 01/18/24 20:35 RDW 13.0 % (11.7-14.6) 01/18/24 20:35 Plt Count 319 10^3/uL (130-400) 01/18/24 20:35 MPV 10.4 fL (8.0-11.0) 01/18/24 20:35 ABO/Rh O Positive 01/18/24 20:35 Antibody Screen NEGATIVE 01/18/24 20:35 Vital Signs Reviewed: Yes Objective Narrative Objective Narrative: tolerating contractions. using nitrous oxide with satisfactory labor analgesia Interventions Pain Management Interventions: Nitrous Oxide , well tolerated. ./ Augmentation , Pitocin rate (mU/min): 4 rate has been at max of 6mu/min then decreased to 2mu/min and now 4mu/min . Results Hemoglobin/Hematocrit: Hgb 11.2 g/dL (11.2-15.7) 01/18/24 20:35 Hct 33.0 % (36.0-46.0) L 01/18/24 20:35 Abnormal Lab Findings: Abnormal Labs 01/18/24 20:35 WBC 13.69 H RBC 3.69 L Hct 33.0 L
[2024-01-19] MEDS: Lidocaine 1% Multi-Dose 20 ML VIAL IJ (19:00)
[2024-01-19] MEDS: Ibuprofen 600 MG TAB PO (19:53)
[2024-01-19] MEDS: Acetaminophen 325 MG TAB 650 MG PO (19:53)
[2024-01-20] MEDS: Acetaminophen 325 MG TAB 650 MG PO ×3 (02:24→20:23)
[2024-01-20] MEDS: Ibuprofen 600 MG TAB PO ×3 (02:25→20:23)
[2024-01-20 08:00] VITALS: BP 123/81; PULSE 81; RESP 12; TEMP 36.5
--- NOTE | 2024-01-20 09:49 | W.OBDELIVERY ---
Date of service: 01/20/24 Time of Service: 09:50 OB Labor/ Delivery Information Baby A Delivery Delivery Method: Spontaneaous Presentation: Cephalic Cephalic Position: Vertex Cord Description-Baby A: 3 Vessels, Nuchal Cord and Reduced Cord Description Comment: Placenta delivered intact with a normal configuration. Amniotic Fluid: Clear Estimated Blood Loss: 150 Delivery Outcome: Liveborn Transferred: Remains with Mother Note: His parents intend to name him Robin Providers Doctor: Madalyn Perez Nurse: Eveline Montesinos Nurse: Josi Tyson Labor/Delivery Information Number of Babies in Womb: 1 Steroids Given: None Reason Steroids Not Administered: N/A Group Beta Strep: Negative Antibiotics Administered: No Rubella Status: Immune Blood Type: O+ Varicella Immunity: Immune Maternal Complications: None Shoulder Dystocia: No Stages of Labor Onset of Labor Date: 01/19/24 Complete Dilatation Date: 01/19/24 Complete Dilatation Time: 17:35 ROM Baby A: 01/19/24 ROM Baby A: 11:11 ROM Total Time- Baby A: [id number] Delivery Date-Baby A: 01/19/24 Delivery Time-Baby A: 19:54 Labor Stage 2 Duration: 2 hours and 19 minutes Placenta Delivery Date-Baby A: 01/19/24 Placenta Delivery Time-Baby A: 19:01 Labor-Stage 3 Duration: -53 minutes Placenta Status: Delivered Baby A Infant Gender: Male Gestational Status: Term (39-41.6 wks) Gestational Age in Weeks/Days: 39 Weeks and 2 Days weight: 7 lb 7.931 oz Length-Baby A: 21 in Head Circumference-Baby A: 13.5 in Score-1 Minute Interval(Baby A) Heart Rate-1 minute: 100 BPM or Greater Respiratory Effort- 1 minute: Spontaneous/Strong Cry Muscle Tone-1 minute: Active Movement Reflex Response-1 minute: Prompt Response Color-1 minute: Pallor or Cyanosis Total Score-1 minute: 8 Score-5 Minute Interval(Baby A) Heart Rate- 5 minute: 100 BPM or Greater Respiratory Effort-5 minute: Spontaneous/Strong Cry Muscle Tone-5 minute: Active Movement Reflex Response-5 minute: Prompt Response Color-5 minute: Pallor or Cyanosis Total Score- 5 minute: 8 Interventions Repair of Laceration Type: Perineal, Laceration Extension: First Degree. Sponge Count Correct: Yes, Sharp Count Correct: Yes. Laceration Repair Note: Superficial laceration of perineal epithelium reapproximated with 3-0 Vicryl in subcuticular fashion.
--- NOTE | 2024-01-20 09:57 | W.PM.OBPNV1 ---
Date of service: 01/20/24 Time of Service: 09:57 Assessment and Plan Assessment and plan (1) Spontaneous vaginal delivery: Status: Acute Assessment and plan: day 1. Successfully breast-feeding. Plan discharge patient to home on 01/20/2014 Subjective Subjective Patient comments: No complaints, Tolerating diet and Flatus present [place] baby status: Doing well, Nursing well, Rooming in and Strong Bonding Observed feeding status: Exclusively breast feeding Exam Physical Exam Vital signs: Temp Pulse Resp BP Pulse Ox 97.7 F 81 12 123/81 99 01/20/24 08:00 01/20/24 08:00 01/20/24 08:00 01/20/24 08:00 01/19/24 14:29 Vital Signs Reviewed: Yes Narrative: She said was low Constitutional Constitutional: no acute distress Neck Exam Neck Exam: Normal Respiratory Exam Respiratory Exam: Normal Fundal Exam Fundus: Below Umbilicus and Firm Rectal Exam Rectal Exam: Not Done Extremities Exam Extremity Exam: Normal, Edema (1+ nonpitting edema) and Warm to Touch Skin Exam Skin Exam: Normal Neurological Exam Neurological Exam: Normal Psychiatric Exam Psychiatric Exam: Normal Results Hemoglobin/Hematocrit: Hgb 11.2 g/dL (11.2-15.7) 01/18/24 20:35 Hct 33.0 % (36.0-46.0) L 01/18/24 20:35 Abnormal Lab Findings: Abnormal Labs 01/18/24 20:35 WBC 13.69 H RBC 3.69 L Hct 33.0 L
[2024-01-20 15:07] VITALS: BP 118/84; PULSE 86; RESP 20; TEMP 37; O2SAT 98
[2024-01-21 00:41] VITALS: BP 107/70; PULSE 72; RESP 17; TEMP 36.8; O2SAT 99
[2024-01-21] MEDS: Acetaminophen 325 MG TAB 650 MG PO ×2 (02:30→07:15)
[2024-01-21] MEDS: Ibuprofen 600 MG TAB PO ×2 (02:31→08:54)
[2024-01-21 07:38] VITALS: BP 117/83; PULSE 91; RESP 20; TEMP 36.7; O2SAT 98
--- NOTE | 2024-01-21 09:34 | W.PM.OBDISCH ---
Date of service: 01/21/24 Time of Service: 09:34 DS: Diagnosis Discharge Diagnosis (1) Spontaneous vaginal delivery: Status: Acute Discharge Plan Disposition Patient Disposition: Home Condition: Good Discharge Details Reason For Visit: Induction of labor Admit Date/Time: 01/18/24 20:16 Admit Provider: Madalyn Perez Attending Provider: Madalyn Perez Primary Care Provider: Yuval Hernandesip Hospital Course Hospital Course: Admitted for cervical ripening on 01/18/24. Oxytocin augmentation of labor initiated in am of 01/19/24. of viable male over 1st degree perineal laceration in the evening of 01/19/24. His parents intend to name him Robin. Discharge to home of PPD 2 successfully breast feeding. Minimal perineal discomfort. Mood good. She will f/u in 2w at [facility] or as needed. Home Meds and New Rx's Prescriptions: No Action ferrous sulfate 325 mg (65 mg iron) tablet 325 mg PO DAILY aspirin 81 mg tablet,delayed release (DR/EC) 81 mg PO DAILY Qty: 45 8RF Rx Instructions: take 1 tablet daily alternating with 2 tablets daily PNV,calcium [id number] acid 27 mg iron- 1 mg tablet 1 tab PO DAILY Qty: 90 4RF Rx Instructions: give with food (meal/snack) zolpidem [Ambien] 5 mg tablet 5 mg PO QHS Qty: 2 0RF Hold Instructions: Prescription Finished Rx Instructions: may repeat once if no response in 30-60 minutes Discharge Instructions Additional Instructions: I Stand Alone Forms: BC Instructions, Post Vaginal Deliver Activity:: Activity as Tolerated Equipment/Supplies:: No Equipment Needed Diet:: As Tolerated OB:DS Summary Summary Vaginal Delivery Method: Spontaneaous Episiotomy Description: None Laceration Description: Perineal Laceration Extension: First Degree Contraception Discussed Contraception Discussed: No (will address at 2w PP visit.), Calvin Gender-Baby A: Male weight: 7 lb 7.931 oz Status at Discharge Functional status at discharge: independent ambulation Overall status at discharge: patient is progressing back to baseline Mental Status: mental status grossly normal Speech and Movement: speech and movement normal Mood: congruent mood Affect: normal affect Quality:SDOH Health Related Social Needs: No Data to Display Exam Physical Exam Vital signs: Temp Pulse Resp BP Pulse Ox 98.1 F 91 H 20 117/83 98 01/21/24 07:38 01/21/24 07:38 01/21/24 07:38 01/21/24 07:38 01/21/24 07:38 Vital Signs Reviewed: Yes Narrative: PPD2. . Successfully . Maternal discomfort controlled with Ibuprofen. Pt is agreeable to discharge today. Plan f/u in office in 2 weeks. Constitutional Constitutional: no acute distress HEENT Exam HEENT Exam: Normal Neck Exam Neck Exam: Normal Respiratory Exam Respiratory Exam: Normal Cardiovascular Exam Cardiovascular Exam: Normal Abdominal Exam Abdomen: Tender (mildly with palpation) Fundal Exam Fundus: Below Umbilicus Rectal Exam Rectal Exam: Not Done Extremities Exam Extremity Exam: Normal Back/Spine/Pelvis Exam Back Exam: Not Done Skin Exam Skin Exam: Normal Neurological Exam Neurological Exam: Normal Psychiatric Exam Psychiatric Exam: Normal [facility] All Active Problems (Updated 01/21/24 @ 09:40 by Madalyn Perez MD) Spontaneous vaginal delivery (Acute) 12/19/22. Ezequiel 7lb8oz.Christine Lanie 01/20/24. Delia 7lb8ozKaryn Kelly Encounter for induction of labor (Acute) Abdominal cramping (Acute) Sciatic pain (Acute) BMI 34.0-34.9,adult (Acute) History of pre-eclampsia in prior , currently (Acute) Right upper quadrant pain (Acute) (Acute) Medical History (Updated 01/21/24 @ 09:40 by Madalyn Perez MD) Cholelithiasis Perineal discomfort in female granulation tissue at site of 12/19/22 perineal laceration and repair. Ankle pain, left Acute urticaria Family History (Updated 07/06/23 @ 13:52 by Yoana Sabillon CNM) Paternal Aunt Multiple myeloma Maternal Grandmother Diabetes Maternal Cousin Heart defect Social History (Updated 01/21/24 @ 09:41 by Madalyn Perez MD) Smoking/Tobacco Use Status: Never Second Hand Exposure: No Smoking risk assessment performed?: Yes Alcohol Intake: never Drug use: Never Substance use type: does not use Household members: spouse, children and other Details: Kandis Quintana, Greg Housing: house Number of Children: 2 current occupation: homemaker. What is your relationship status?: How often do you talk on the phone with friends or family?: twice per week How often do you get together with friends or relatives?: twice per week Do you belong to any clubs or organized social groups?: no Panel score (0-1 are the most socially isolated patients): 2 What type of physical activity do you participate in: walking Duration: 15-30 minutes/day Frequency: 3-4 times per week Nadia/Anabaptism: Rastafarian Special nadia needs: No Seatbelt use: always Helmet use: Yes Drive intox or ride w/intox route driver salesperson: Yes Water heater temp set <120 deg: Yes Working smoke detector in home: Yes Fire extinguisher in home: Yes Carbon monox detector in home: Yes Firearms in home: Yes Firearms unloaded and locked: Yes Do you feel safe at home: Yes Do you feel safe in your relationship?: Yes History History 2 Para 1 Hx # Term Pregnancies 1 Multiple births 0 Hx # Pregnancies 0 Ectopic pregnancies 0 AB induced 0 Hx Number of Living Children 1 AB spontaneous 0 Past Pregnancies Del. Date GA/Weeks # Preg Succ Route Wgt Sex Labor Lgth Anesthesia Location Prov Compl 12/11/22 39 No Yes vaginal 7 lb 8 oz Female [facility]hr [facility] 01/19/24 39 No Yes vaginal 7 lb 8 oz aoc Delivery Date: 12/11/22 Last Updated by: Madalyn Perez MD IOL gestational HTN. Epidural. 2nd degree. Ezequiel Prater Delivery Date: 01/19/24 Last Updated by: MD Robin Armstrong DS: Data Vitals/I&O Vitals and I&O: Vital Signs Temperature 98.1 F 01/21/24 07:38 Temperature Source Oral 01/21/24 07:38 Pulse 91 H 01/21/24 07:38 Pulse Rhythm Regular 01/21/24 07:38 Respiratory Rate 20 01/21/24 07:38 Respiratory Depth Normal 01/20/24 20:30 Blood Pressure 117/83 01/21/24 07:38 Blood Pressure Mean 94 01/21/24 07:38 Pulse Oximetry 98 01/21/24 07:38 Oxygen Delivery Method Room Air 01/18/24 20:33 Oxygen Flow Rate 0 01/18/24 20:33 Pain Level 2 01/21/24 08:54 Intake & Output 01/20/24 01/20/24 01/21/24 11:59 23:59 11:59 Output Total 1000 / 1000 Balance -1000 / -1000 Output: Urine 1000 / 1000 Other: Urine Color Yellow
== END 2024-01-21 10:40 | disposition home or self-care (01) | DRG 807 ==
PROVIDERS: Admitting Provider Obstetrics & Gynecology Gynecology; PCP Family Medicine; Visit Provider Obstetrics & Gynecology Gynecology
DX: O99.62 Diseases of the digestive system complicating childbirth (principal); Z37.0 Single live birth; K80.20 Calculus of gallbladder without cholecystitis without obstruction; O69.81X0 Labor and delivery complicated by cord around neck, without compression, not applicable or unspecified; O70.0 First degree perineal laceration during delivery; Z3A.39 39 weeks gestation of pregnancy; R19.7 Diarrhea, unspecified; R10.9 Unspecified abdominal pain
CPT/HCPCS: 36415; 85027; 86850; 86900; 86901; 59200; J2003; J3490

== ENCOUNTER 2024-11-08 13:19 | Outpatient (REF) | payer MEDICAID, SELFPAY ==
--- NOTE | 2024-11-08 13:40 | PAPFT_PTH ---
PATIENT: Teetee Nielson LOC: [facility] U#:[id number] AGE/SX: 24/F ROOM: RE11/08/[address]: Jennifer Shi : 2000 BED: DIS: 11/08/2024 SPEC #: [id number] RECD: 11/08/24 17:52 STATUS: JULIO REQ #: [id number] DOMINICK: 11/08/24 13:[address]: Jennifer Shi DEPT: [facility] Cytology RECD BY: Sue Andersen ENTERED: 11/08/24 17:52 SP TYPE: PAPFT OTHR DR: Ahsan Hernandes Tissues: 1 - CX/ENDOCX FOR PAP SMEARS Procedures: PAP THIN PREP/[facility] Screening Comments: [id number] (CHLAMYDIA/GC)
[2024-11-08 14:51] LABS: Abs Immature Grans 0.01 10^3/uL (0.0-0.06); Absolute Basophil Count 0.02 10^3/uL (0.0-0.2); Absolute Eosinophil Count 0.14 10^3/uL (0.0-0.7); Absolute Lymphocyte Count 2.23 10^3/uL (1.2-3.4); Absolute Neutrophil Count 3.59 10^3/uL (1.2-6.7); Basophils % 0.3 %; Eosinophils % 2.2 %; HGB 10.5 g/dL (11.2-15.7); Immature Grans % 0.2 %; Lymphocytes % 34.9 %; MCH 28.6 pg (27.0-33.0); MCHC 32.8 % (32.0-36.0); MCV 87 fL (80-95); MPV 9.2 fL (8.0-11.0); Monocytes % 6.3 %; Neutrophils % 56.1 %; Platelet Count 253 10^3/uL (130-400); RBC 3.67 10^6/uL (3.93-5.22); RDW 13.5 % (11.7-14.6); RDW-SD 43.3 fL; WBC 6.39 10^3/uL (4.4-10.8)
[2024-11-08 15:15] LABS: ALT 35 U/L (14-59); AST 22 U/L (15-37); Albumin 3.6 g/dL (3.4-5.0); Alkaline Phosphatase 63 U/L (46-116); Anion Gap 8.1 mmol/L (3-11); BUN 12 mg/dL (7-18); Bilirubin, Total 0.3 mg/dL (0.2-1.0); CO2 27.9 mmol/L (21.0-32.0); CREATININE 0.5 mg/dL (0.55-1.02); Calcium 8.1 mg/dL (8.5-10.1); Chloride 103 mmol/L (98-107); Estimated GFR 134.23 (mL/min/1.73m2); Glucose 94 mg/dL (74-106); Potassium 4.2 mmol/L (3.5-5.1); Sodium 139 mmol/L (136-145); Total Protein 7.3 g/dL (6.4-8.2)
[2024-11-08 16:10] LABS: Panorama Kit Sent via Fed Ex
[2024-11-09 09:45] LABS: HIV-1/2 Ag & Ab Screen Negative (Negative)
[2024-11-09 09:56] LABS: Hepatitis C Ab w Rflx HCV PCR Negative (Negative)
[2024-11-09 11:24] LABS: Hepatitis B Surface Ag Negative (Negative)
[2024-11-09 12:04] LABS: Rubella IgG Ab (UVM) Positive (See Note)
[2024-11-09 12:15] LABS: Varicella IgG Antibody Positive (See Note)
[2024-11-09 12:59] LABS: Chlamydia Result Negative (Negative); GC Result Negative (Negative)
[2024-11-10 12:46] LABS: Syphilis IgG w/Reflex Nonreactive (Nonreactive)
== END 2024-11-08 13:20 | disposition home or self-care (01) ==
LOC: LBN 13:19
PROVIDERS: PCP Family Medicine; Visit Provider Advanced Practice Midwife
DX: Z34.91 Encounter for supervision of normal pregnancy, unspecified, first trimester (principal); Z12.4 Encounter for screening for malignant neoplasm of cervix
CPT/HCPCS: 36415; 80053; 86787; 86803; 86850; 86900; 86901; 87340; 87389; 87491; 87591; 88142; 85025; 86762; 86780; 87086

== ENCOUNTER 2024-11-29 02:20 | Outpatient (CLI) | payer MEDICAID, SELFPAY ==
[2024-11-29 14:21] LABS: Abs Immature Grans 0.03 10^3/uL (0.0-0.06); Absolute Basophil Count 0.02 10^3/uL (0.0-0.2); Absolute Eosinophil Count 0.13 10^3/uL (0.0-0.7); Absolute Lymphocyte Count 2.19 10^3/uL (1.2-3.4); Absolute Monocyte Count 0.41 10^3/uL (0.1-0.8); Absolute Neutrophil Count 4.62 10^3/uL (1.2-6.7); Basophils % 0.3 %; Eosinophils % 1.8 %; HCT 33.3 % (36.0-46.0); HGB 11.2 g/dL (11.2-15.7); Immature Grans % 0.4 %; Lymphocytes % 29.6 %; MCH 29.6 pg (27.0-33.0); MCHC 33.6 % (32.0-36.0); MCV 88 fL (80-95); Monocytes % 5.5 %; Neutrophils % 62.4 %; Platelet Count 239 10^3/uL (130-400); RBC 3.79 10^6/uL (3.93-5.22); RDW 13.8 % (11.7-14.6); RDW-SD 44.4 fL
[2024-11-29 14:53] LABS: PROTEIN 9.7 mg/dL; Prot/Crea Ur Ratio 0.11
[2024-12-03 16:09] LABS: AFP 48.2 ng/mL; Calculated age at EDD 24 years; Cigarette smoking status non-Smoker; GA used in risk estimate Scan estimate; IVF Pregnancy No; Initial or repeat testing Initial testing; Insulin dependent diabetes No; Maternal Weight 169 lbs; Number of Fetuses 1; Physician Phone Number 802-748-7300; Prev Pregnancy w/NTD No; RECOMMENDED FOLLOW UP None.; Results Summary Normal risk
== END 2024-11-29 02:21 | disposition home or self-care (01) ==
LOC: LBO 02:20
PROVIDERS: Obstetrics & Gynecology; PCP Family Medicine; Visit Provider Advanced Practice Midwife
DX: Z34.91 Encounter for supervision of normal pregnancy, unspecified, first trimester
CPT/HCPCS: 36415; 82105; 82565; 84156; 85025; 87086

== ENCOUNTER 2024-12-27 02:39 | Outpatient (CLI) | payer MEDICAID, SELFPAY ==
--- NOTE | 2024-12-27 10:20 | DI.US_ITS ---
Exam(s) US OB 2-3 TRIMESTER EXAM: US OB 2-3 TRIMESTER CLINICAL HISTORY: 20 wk survey,z34.91. TECHNIQUE: Transabdominal obstetrical ultrasound performed. COMPARISON: US POCUS EXAM from 09/20/2024 FINDINGS: Number of fetuses: 1 position: CEPHALIC Placental location: ANTERIOR. No evidence of previa. BIOMETRIC DATA: BPD: 4.63cm, 20weeks HC: 17.7cm, 20weeks 1day AC: 14.18cm, 19weeks 4days FL: 3.37cm, 20weeks 4days Cisterna magna: 4.2mm Cerebellum: 2.02cm Lateral ventricle: 5 mm EFW: 328.16g, 0.71lb, 25% Composite Age: 20weeks 1day NAKITA: 05/15/2025 Heart Rate: 161bpm Amniotic fluid: Amount of fluid is within normal limits. ANATOMICAL SURVEY: Four-chambered heart: Unremarkable. LVOT: Unremarkable. RVOT: Unremarkable. Left-sided stomach: Unremarkable. urinary bladder: Unremarkable. Bilateral kidneys: Unremarkable. Three-vessel cord: Unremarkable. Cord insertion: Unremarkable. Posterior fossa:Unremarkable. ventricles: Unremarkable. nose: Unremarkable. lips: Unremarkable. palate: Unremarkable. spine: Unremarkable. Two arms and two legs: Unremarkable. IMPRESSION: 1. Single live intrauterine gestation measuring 20 weeks 1 day. 2. Normal anatomic survey. DATA REPOSITORY:
== END 2024-12-27 02:59 ==
LOC: DI 02:39
PROVIDERS: PCP Family Medicine; Visit Provider Advanced Practice Midwife
DX: Z34.92 Encounter for supervision of normal pregnancy, unspecified, second trimester (principal); Z3A.20 20 weeks gestation of pregnancy
CPT/HCPCS: 76805

== ENCOUNTER 2025-02-12 03:10 | Outpatient (CLI) | payer MEDICAID, SELFPAY ==
[2025-02-12 10:56] LABS: Abs Immature Grans 0.06 10^3/uL (0.0-0.06); HCT 30.9 % (36.0-46.0); HGB 10.5 g/dL (11.2-15.7); Immature Grans % 0.8 %; MCH 30.3 pg (27.0-33.0); MCHC 34.0 % (32.0-36.0); MCV 89 fL (80-95); MPV 9.0 fL (8.0-11.0); Platelet Count 260 10^3/uL (130-400); RBC 3.46 10^6/uL (3.93-5.22); RDW 13.6 % (11.7-14.6); RDW-SD 44.3 fL; WBC 7.84 10^3/uL (4.4-10.8)
[2025-02-12 11:09] LABS: Glucose,1 Hr (Glucola) 76 mg/dL (80-140)
== END 2025-02-12 03:11 | disposition home or self-care (01) ==
LOC: LBO 03:10
PROVIDERS: PCP Family Medicine; Visit Provider Obstetrics & Gynecology
DX: Z34.93 Encounter for supervision of normal pregnancy, unspecified, third trimester
CPT/HCPCS: 36415; 82950; 85025

== ENCOUNTER 2025-04-19 19:38 | Outpatient (REF) | payer MEDICAID, SELFPAY | END 2025-04-19 19:39 | disposition home or self-care (01) | LOC: LBN 19:38 | PROVIDERS: PCP Family Medicine; Visit Provider Obstetrics & Gynecology | DX: Z34.93 Encounter for supervision of normal pregnancy, unspecified, third trimester | CPT/HCPCS: 87081 ==

== ENCOUNTER 2025-05-07 06:12 | Outpatient (CLI) | payer MEDICAID, SELFPAY ==
[2025-05-07 07:35] VITALS: BP 119/76; PULSE 94; TEMP 36.6
[2025-05-07 07:38] VITALS: BP 119/76; PULSE 94
--- NOTE | 2025-05-07 07:45 | W.PM.OBNL1 ---
Date of service: 05/07/25 Time of Service: 07:45 Pelvic Exam Dilation: 2 Effacement (%): 50 station: -2 Position: JANNA Cervix Position: anterior Consistency: soft Contractions Monitor Mode: Palpation Contraction Frequency(min): 10 Intensity: Mild Fetus A Heart Rate Baseline: 140 Presentation: Cephalic Variability: Moderate (6-25 BPM) Categories: Category I Objective Pulse BP 94 H 119/76 05/07/25 07:38 05/07/25 07:38 Subjective Interval history since last seen: Patient seen and examined this morning. She called with decreased movement. No movement for 12 hours. She was placed on the monitor and has a category 1 reactive heart rate tracing. Ultrasound was performed confirm vertex position with an COURTNEY of 8. Placenta somewhat calcified. She has had occasional contractions. She had her cervix checked and membranes stripped. She was 2 to 3 cm 50% soft vertex. Precautions were given. Ultrasound OB Ultrasound for COURTNEY. (Fetus is cephalic) Indication: Decreased movement Total COURTNEY: 8 Exam complete and Ultrasound for presentation. Indication: Decreased movement Exam complete.
--- NOTE | 2025-05-07 07:57 | W.OBNST ---
Date of service: 05/07/25 Time of Service: 07:57 NST Evaluation Reason for NST Reasons for Nonstress Test: OTHER, SEE COMMENT Gestational Age Gestational Age in Weeks and Days: 39 Weeks and 1Days Test and Monitor Explained Test/Monitor Explained: Test Explained, Monitor Explained and Patient Verbalized Understanding Vital Signs Blood Pressure: 119/76 Pulse: 94 Temperature: 97.9 F Urine Results Urine Protein: Negative Urine Ketones: Negative Urine Glucose: Negative Urine Blood: Negative NST Information Date on Monitor: 05/07/25 Time on Monitor: 07:12 Date off Monitor: 05/07/25 Time off Monitor: 07:37 Total Time on Monitor: 25 NST Interventions: Notify Provider Contraction Frequency: Occasional NST Evaluation Patient States Movement: Present FHR Baseline: 150 Variability: Moderate 6-25 bpm Accelerations: 15x15 Decelerations: None NST Results: Reactive Note Ultrasound Done: COURTNEY Coding for COURTNEY w/NST: Completed Exam. NST Note Note: Category 1, reactive NST. Cervix 2 to 3 cm 50%. Soft. Continue to monitor movement. Present for induction tomorrow as scheduled. NST Reviewed and Verified by: Krystyna Wilburn
[2025-05-07 07:58] VITALS: BP 119/76; PULSE 94; TEMP 36.6
== END 2025-05-07 07:50 ==
LOC: BCD 06:12 → OBS 07:05
PROVIDERS: PCP Family Medicine; Visit Provider Obstetrics & Gynecology
DX: Z3A.39 39 weeks gestation of pregnancy (principal); O36.8131 Decreased fetal movements, third trimester, fetus 1
CPT/HCPCS: 59025

== ENCOUNTER 2025-05-08 08:15 | Inpatient (IN) | payer MEDICAID, SELFPAY ==
[2025-05-08] VITALS (20 sets, daily range): BP systolic 106–127; BP diastolic 61–80; PULSE 81–102; RESP 16; TEMP 36.3–36.7; O2SAT 98–100
--- NOTE | 2025-05-08 08:30 | HPE_ITS ---
Date of service: 05/08/25 Time of Service: 08:30 Assessment and Plan Assessment and plan (1) : Status: Acute Assessment and plan: Pt is a @39.2wks here for induction of labor at term. She is feeling well. H/o GHTN in her first but no issues with the last one or this one. We discussed induction of labor and she is agreeable to start pitocin followed by AROM when appropriate. OB-HPI Labor/Delivery History of Present Illness Reason for Visit: induction of labor Chief Complaint: Scheduled Induction of Labor Indication for Induction: Other. NAKITA Calculator Estimated Delivery Date Method Current WG Current Estimate 05/13/25 Ultrasound #1 39w 2d Other Estimates 04/29/25 LMP (Uncertain) 41w 2d 05/16/25 Ultrasound #2 38w 6d History of Present Expected Delivery Route/Plan - MD POOJA Domingo (third child together) Specific Issues/Plan 1. Hx gHTN in first , normotensive second . Start Baby ASA 12 weeks. CMP WNL 2. Anemia of 10.1 first trimester: taking daily iron, now apart from PNV and with OJ. recheck with hemoglobin analyzer (@) with next visit ___ 3. cfDNA screen low risk x5, gender not reported; AFP=nml risk for NTD Narrative: Pt had some cramping overnight but nothing significant. Review of Systems Constitutional Constitutional: Reports system reviewed and no additional complaints, except as documented Gastrointestinal Gastrointestinal: Denies nausea and Denies vomiting Genitourinary Genitourinary: Reports system reviewed and no additional complaints, except as documented Musculoskeletal Comments: No regular contractions PFSH All Active Problems (Acute) BMI 34.0-34.9,adult (Acute) Medical History PUPP (pruritic urticarial papules and plaques of ) Spontaneous vaginal delivery 12/19/22. F. 7lb8oz.Christine Dela Cruz 01/20/24. M. 7lb8oz. Robin Cholelithiasis Family History (Updated 11/08/24 @ 13:16 by Jennifer Shi CNM) Paternal Aunt Multiple myeloma Maternal Grandmother Diabetes Maternal Cousin Heart defect Social History (Updated 11/08/24 @ 13:18 by Jennifer Shi CNM) Smoking/Tobacco Use Status: Never Second Hand Exposure: No Smoking risk assessment performed?: Yes Alcohol Intake: never Drug use: Never Substance use type: does not use Household members: spouse, children and other Details: Ricardo-Jalen, Rosa M-Irina, S-Robin Housing: house Number of Children: 2 Education Level: high school current occupation: homemaker. Pets and animals: No Sexually active: Yes Do you think of yourself as: straight/heterosexual Current gender identity: female What is your relationship status?: How often do you talk on the phone with friends or family?: twice per week How often do you get together with friends or relatives?: twice per week Do you belong to any clubs or organized social groups?: no Panel score (0-1 are the most socially isolated patients): 2 What type of physical activity do you participate in: walking Duration: 15-30 minutes/day Frequency: 3-4 times per week Nadia/Islam: Lutheran Special nadia needs: No Agree to transfusion: Yes Seatbelt use: always Helmet use: Yes Drive intox or ride w/intox non emergency services ambulance driver: Yes Water heater temp set <120 deg: Yes Working smoke detector in home: Yes Fire extinguisher in home: Yes Carbon monox detector in home: Yes Firearms in home: Yes Firearms unloaded and locked: Yes Do you feel safe at home: Yes Do you feel safe in your relationship?: Yes History History 3 Para 2 Hx # Term Pregnancies 2 Multiple births 0 Hx # Pregnancies 0 Ectopic pregnancies 0 AB induced 0 Hx Number of Living Children 2 AB spontaneous 0 Past Pregnancies Del. Date GA/Weeks # Preg Succ Route Wgt Sex Labor Lgth Anesth esia Location [facility] 12/11/22 39 No Yes vaginal 7 lb 8 oz Female 17hr regional [facility] 01/19/24 39 No Yes vaginal 7 lb 8 oz Male aoc Delivery Date: 12/11/22 Last Updated by: Madalyn Perez MD IOL gestational HTN. Epidural. 2nd degree. Ezequiel Prater Delivery Date: 01/19/24 Last Updated by: MD Robin Armstrong Meds Allergies and Home Medications Allergies Allergy/AdvReac Type Severity Reaction Status Date / Time No Known Allergies Allergy Verified 05/03/25 15:46 Home Medications ?Medication ?Instructions ?Recorded ?Confirmed ?Type ferrous sulfate 325 mg (65 mg 325 mg PO DAILY 01/28/23 05/03/25 History iron) tablet vitamins with calcium 1 tab PO DAILY #90 tabs 07/06/23 05/03/25 Rx no.72-iron 27 mg-folic acid 1 mg tablet Exam Physical Exam Vital signs: Pulse BP 91 H 121/73 05/08/25 08:26 05/08/25 08:26 Vital Signs Reviewed: Yes Detailed Labor and Delivery Exam Dilation: 2 Effacement (%): 50 station: -3 Consistency: soft Yeager Score: Cervical Points Exam 0 1 2 3 Dilation Closed 1-2cm 3-4 cm 5-6cm Effacement 0-30% 40-50% 60-70% 80% Consistency Firm Medium Soft Station -3 -2 -1,0 +1,+2 Position Posterior Mid Anterior Fetus A Heart Rate Baseline: 155 Monitor Accelerations: Present Monitor Decelerations: None Variability: Moderate (6-25 BPM) Presentation: Vertex Categories: Category I Detailed HEENT Exam Head: Present normocephalic and atraumatic Detailed Abdominal Exam Comments: gravid, nontender Detailed Neurological Exam Neurological: Present alert, oriented X3 and CN II-XII intact DetailedPsychiatric Exam Psychiatric: Present normal affect, normal thought process and cooperative Results Results Group Beta Strep: Negative Blood Type: O+ Rubella Status: Immune Varicella Immunity: Immune Risk Assessment Risk for Shoulder Dystocia Historical/Initial OB: POSITIVE FOR: Pre- BMI>30; NEGATIVE FOR: Pelvic Abnormality, Previous Shoulder Dystocia or Previous Macrosomia Risk for Pre-Eclampsia Date Initiated/Initials: RG 11/08/24 Yes, if one or more: POSTIVE FOR: Hx Pre-E/Gest HTN; NEGATIVE FOR: Chronic HTN, Multiple Gestation, Pre-gestational DM, Renal Disease, Systemic Lupus or APA Syndrome Yes, if 2 or more: POSITIVE FOR: BMI>30; NEGATIVE FOR: Nulliparity, Age>= 35 yrs, >10yr btwn pregnancies, ethinicty, Mother/Sister w/ Pre-E or Previous IUGR Risk for Post- Hemorrhage Initial: NEGATIVE FOR: Multiple Gestation, Previous PPH, Known Clotting Deficiency, Grand Multiparity or Anticoagulation Counseled re: Active Management: Yes Risks Reviewed Risks Reviewed Upon Admission: Yes
[2025-05-08] MEDS: Lactated Ringers 1,000 ML 125 ML IV (09:08)
[2025-05-08] MEDS: Normal Saline Flush 10 ML SYR IVP (09:09)
[2025-05-08] MEDS: Oxytocin/Normal Saline 30 UNIT/500 ML BAG 2 UNITS IV (09:09)
[2025-05-08 09:15] LABS: Abs Immature Grans 0.06 10^3/uL (0.0-0.06); HCT 34.0 % (36.0-46.0); HGB 11.4 g/dL (11.2-15.7); Immature Grans % 0.7 %; MCH 30.2 pg (27.0-33.0); MCHC 33.5 % (32.0-36.0); MCV 90 fL (80-95); MPV 10.2 fL (8.0-11.0); Platelet Count 304 10^3/uL (130-400); RBC 3.78 10^6/uL (3.93-5.22); RDW 12.9 % (11.7-14.6); RDW-SD 42.1 fL; WBC 8.98 10^3/uL (4.4-10.8)
--- NOTE | 2025-05-08 15:20 | W.PM.OBNL1 ---
Date of service: 05/08/25 Time of Service: 15:20 Pelvic Exam Comments: Not repeated yet. Fetus A Heart Rate Baseline: 135 Variability: Moderate (6-25 BPM) Categories: Category I Accelerations: 15 X 15 Decelerations: None Amniotic Membrane Status: Intact Assessment and Plan Assessment and plan (1) : Status: Acute Assessment and plan: P2 @39.2wks here for induction at term with pitocin. Will eval in ~2hrs with likely AROM. Objective Abnormal lab results 05/08/25 Range/Units 08:55 RBC 3.78 L (3.93-5.22) 10^6/uL Hct 34.0 L (36.0-46.0) % Temp Pulse Resp BP Pulse Ox 97.7 F 94 H 16 121/69 98 05/08/25 14:15 05/08/25 15:11 05/08/25 11:47 05/08/25 15:11 05/08/25 11:47 Laboratory Results WBC 8.98 10^3/uL (4.4-10.8) 05/08/25 08:55 RBC 3.78 10^6/uL (3.93-5.22) L 05/08/25 08:55 Hgb 11.4 g/dL (11.2-15.7) 05/08/25 08:55 Hct 34.0 % (36.0-46.0) L 05/08/25 08:55 MCV 90 fL (80-95) 05/08/25 08:55 MCH 30.2 pg (27.0-33.0) 05/08/25 08:55 MCHC 33.5 % (32.0-36.0) 05/08/25 08:55 RDW 12.9 % (11.7-14.6) 05/08/25 08:55 Plt Count 304 10^3/uL (130-400) 05/08/25 08:55 MPV 10.2 fL (8.0-11.0) 05/08/25 08:55 Immature Gran % 0.7 % 05/08/25 08:55 Neutrophils % 70.0 % 05/08/25 08:55 Lymphocytes % 20.5 % 05/08/25 08:55 Monocytes % 7.1 % 05/08/25 08:55 Eosinophils % 1.4 % 05/08/25 08:55 Basophils % 0.3 % 05/08/25 08:55 Nucleated RBC % 0.0 % (0.0-0.3) 05/08/25 08:55 Absolute Neutrophils 6.28 10^3/uL (1.2-6.7) 05/08/25 08:55 Absolute Lymphocytes 1.84 10^3/uL (1.2-3.4) 05/08/25 08:55 Absolute Monocytes 0.64 10^3/uL (0.1-0.8) 05/08/25 08:55 Absolute Eosinophils 0.13 10^3/uL (0.0-0.7) 05/08/25 08:55 Absolute Basophils 0.03 10^3/uL (0.0-0.2) 05/08/25 08:55 ABO/Rh O Positive 05/08/25 08:55 Antibody Screen NEGATIVE 05/08/25 08:55 Vital Signs Reviewed: Yes Subjective Interval history since last seen: Pt feeling more ctxs but still not too intense. Increased pressure. Results Hemoglobin/Hematocrit: Hgb 11.4 g/dL (11.2-15.7) 05/08/25 08:55 Hct 34.0 % (36.0-46.0) L 05/08/25 08:55 Abnormal Lab Findings: Abnormal Labs 05/08/25 08:55 RBC 3.78 L Hct 34.0 L
--- NOTE | 2025-05-08 17:39 | W.PM.OBNL1 ---
Date of service: 05/08/25 Time of Service: 15:30 Pelvic Exam Dilation: 4 Effacement (%): 80 station: -2 Consistency: soft Contractions Contraction Frequency(min): q2-4 Fetus A Heart Rate Baseline: 145 Presentation: Vertex Variability: Moderate (6-25 BPM) Categories: Category I Accelerations: 15 X 15 Decelerations: None Amniotic Membrane Status: Ruptured Rupture Method: Artifical Amniotic Fluid: Clear Assessment and Plan Assessment and plan (1) : Status: Acute Assessment and plan: P2 @39.2wks here for induction at term with pitocin. Now s/p AROM. Cat 1 FHT. Objective Abnormal lab results 05/08/25 Range/Units 08:55 RBC 3.78 L (3.93-5.22) 10^6/uL Hct 34.0 L (36.0-46.0) % Temp Pulse Resp BP Pulse Ox 97.3 F L 81 16 119/72 98 05/08/25 17:00 05/08/25 17:00 05/08/25 11:47 05/08/25 17:00 05/08/25 11:47 Laboratory Results WBC 8.98 10^3/uL (4.4-10.8) 05/08/25 08:55 RBC 3.78 10^6/uL (3.93-5.22) L 05/08/25 08:55 Hgb 11.4 g/dL (11.2-15.7) 05/08/25 08:55 Hct 34.0 % (36.0-46.0) L 05/08/25 08:55 MCV 90 fL (80-95) 05/08/25 08:55 MCH 30.2 pg (27.0-33.0) 05/08/25 08:55 MCHC 33.5 % (32.0-36.0) 05/08/25 08:55 RDW 12.9 % (11.7-14.6) 05/08/25 08:55 Plt Count 304 10^3/uL (130-400) 05/08/25 08:55 MPV 10.2 fL (8.0-11.0) 05/08/25 08:55 Immature Gran % 0.7 % 05/08/25 08:55 Neutrophils % 70.0 % 05/08/25 08:55 Lymphocytes % 20.5 % 05/08/25 08:55 Monocytes % 7.1 % 05/08/25 08:55 Eosinophils % 1.4 % 05/08/25 08:55 Basophils % 0.3 % 05/08/25 08:55 Nucleated RBC % 0.0 % (0.0-0.3) 05/08/25 08:55 Absolute Neutrophils 6.28 10^3/uL (1.2-6.7) 05/08/25 08:55 Absolute Lymphocytes 1.84 10^3/uL (1.2-3.4) 05/08/25 08:55 Absolute Monocytes 0.64 10^3/uL (0.1-0.8) 05/08/25 08:55 Absolute Eosinophils 0.13 10^3/uL (0.0-0.7) 05/08/25 08:55 Absolute Basophils 0.03 10^3/uL (0.0-0.2) 05/08/25 08:55 ABO/Rh O Positive 05/08/25 08:55 Antibody Screen NEGATIVE 05/08/25 08:55 Vital Signs Reviewed: Yes Results Hemoglobin/Hematocrit: Hgb 11.4 g/dL (11.2-15.7) 05/08/25 08:55 Hct 34.0 % (36.0-46.0) L 05/08/25 08:55 Abnormal Lab Findings: Abnormal Labs 05/08/25 08:55 RBC 3.78 L Hct 34.0 L
--- NOTE | 2025-05-08 19:30 | PGE_ITS ---
Date of service: 05/08/25 Time of Service: 19:31 Pelvic Exam Dilation: 6 Effacement (%): 90 station: 0 Vaginal Exam Presentation: Cephalic Contractions Contraction Frequency(min): q2-3 Fetus A Heart Rate Baseline: 140 Variability: Moderate (6-25 BPM) Categories: Category I Accelerations: Present Decelerations: Early Amniotic Membrane Status: Ruptured Rupture Method: Artifical Amniotic Fluid: Dominick ar Assessment and Plan Assessment and plan (1) : Status: Acute Assessment and plan: P2 @39.2wks here for induction at term with pitocin. Now s/p AROM. Cat 1 FHT. Anticipate NVD. Objective Abnormal lab results 05/08/25 Range/Units 08:55 RBC 3.78 L (3.93-5.22) 10^6/uL Hct 34.0 L (36.0-46.0) % Temp Pulse Resp BP Pulse Ox 98.1 F 81 16 119/72 98 05/08/25 19:11 05/08/25 17:00 05/08/25 11:47 05/08/25 17:00 05/08/25 11:47 Laboratory Results WBC 8.98 10^3/uL (4.4-10.8) 05/08/25 08:55 RBC 3.78 10^6/uL (3.93-5.22) L 05/08/25 08:55 Hgb 11.4 g/dL (11.2-15.7) 05/08/25 08:55 Hct 34.0 % (36.0-46.0) L 05/08/25 08:55 MCV 90 fL (80-95) 05/08/25 08:55 MCH 30.2 pg (27.0-33.0) 05/08/25 08:55 MCHC 33.5 % (32.0-36.0) 05/08/25 08:55 RDW 12.9 % (11.7-14.6) 05/08/25 08:55 Plt Count 304 10^3/uL (130-400) 05/08/25 08:55 MPV 10.2 fL (8.0-11.0) 05/08/25 08:55 Immature Gran % 0.7 % 05/08/25 08:55 Neutrophils % 70.0 % 05/08/25 08:55 Lymphocytes % 20.5 % 05/08/25 08:55 Monocytes % 7.1 % 05/08/25 08:55 Eosinophils % 1.4 % 05/08/25 08:55 Basophils % 0.3 % 05/08/25 08:55 Nucleated RBC % 0.0 % (0.0-0.3) 05/08/25 08:55 Absolute Neutrophils 6.28 10^3/uL (1.2-6.7) 05/08/25 08:55 Absolute Lymphocytes 1.84 10^3/uL (1.2-3.4) 05/08/25 08:55 Absolute Monocytes 0.64 10^3/uL (0.1-0.8) 05/08/25 08:55 Absolute Eosinophils 0.13 10^3/uL (0.0-0.7) 05/08/25 08:55 Absolute Basophils 0.03 10^3/uL (0.0-0.2) 05/08/25 08:55 ABO/Rh O Positive 05/08/25 08:55 Antibody Screen NEGATIVE 05/08/25 08:55 Vital Signs Reviewed: Yes Subjective Interval history since last seen: Pt feeling more pressure. Results Hemoglobin/Hematocrit: Hgb 11.4 g/dL (11.2-15.7) 05/08/25 08:55 Hct 34.0 % (36.0-46.0) L 05/08/25 08:55 Abnormal Lab Findings: Abnormal Labs 05/08/25 08:55 RBC 3.78 L Hct 34.0 L
--- NOTE | 2025-05-08 21:32 | ANES.PREOP_ITS ---
General Info Date of Service Date Performed: 05/08/25 Height: 5 ft Weight: 89.358 kg Body Mass Index (BMI): 38.5 Meds Allergies and Home Medications Allergies Allergy/AdvReac Type Severity Reaction Status Date / Time No Known Allergies Allergy Verified 05/03/25 15:46 Home Medication ?Medication ?Instructions ?Recorded ferrous sulfate 325 mg (65 mg 325 mg PO DAILY 01/28/23 iron) tablet vitamins with calcium 1 tab PO DAILY #90 tabs 07/06/23 no.72-iron 27 mg-folic acid 1 mg tablet Current Visit Medications: Current Medications Generic Name Dose Route Start Last Admin Trade Name Freq PRN Reason Stop Dose Admin Fentanyl/Ropivacaine 200 ml 05/08/25 21:15 Fentanyl/Ropivacaine 2 Mcg/Ml And 0.1% 200 Ml Cadd Cassette EP DIRECTED MARIALUISA Ringer's Solution 1,000 mls @ 125 mls/hr 05/08/25 08:30 05/08/25 09:08 IV 125 mls/hr INFUSION MARIALUISA Administration Oxytocin/Sodium Chloride 30 unit in 500 mls @ 2 mls/hr 05/08/25 08:30 05/08/25 17:22 Pitocin/Normal Saline IV 14 milliunits/min INFUSION MARIALUISA 14 mls/hr Protocol Titration 2 MILLIUNITS/MIN IV Miscellaneous Supplies 1 each 05/08/25 08:30 Iv Access IV DIRECTED MARIALUISA IV Miscellaneous Supplies 1 each 05/08/25 08:30 Iv Access IV DIRECTED MARIALUISA Sodium Chloride 0 ml 05/08/25 08:21 Normal Saline Flush 10 Ml Syr IVP PRN PRN Sodium Chloride 0 ml 05/08/25 08:30 05/08/25 09:09 Normal Saline Flush 10 Ml Syr IVP 10 ml BID MARIALUISA Administration Sodium Chloride 0 ml 05/08/25 08:21 Normal Saline 10 Ml Vial IJ DIRECTED PRN PFSH Active Problems Active Problems: Problem Status Onset Code BMI 34.0-34.9,adult Acute Z68.34 Acute Z34.90 Medical History Medical History PUPP (pruritic urticarial papules and plaques of ) Spontaneous vaginal delivery 12/19/22. Ezequiel 7lb8ozSelene Dela Cruz 01/20/24. Delia 7lb8ozKaryn Robin Cholelithiasis Tobacco Smoking/Tobacco Use Status: Never Second hand exposure: No Alcohol Alcohol Intake: never Substance Use Substance use: Never Substance use type: does not use Prental History History 2 3 Para 2 Hx # Term Pregnancies 2 Multiple births 0 Hx # Pregnancies 0 Ectopic pregnancies 0 AB induced 0 Hx Number of Living Children 2 AB spontaneous 0 Past Pregnancies Del. Date GA/Weeks # Preg Succ Route Wgt Sex Labor Lgth Anesth esia Location Prov [facility] 12/11/22 39 No Yes vaginal 3401.943 g Female [facility]hr [facility] 01/19/24 39 No Yes vaginal 3401.943 g Male aoc Delivery Date: 12/11/22 Last Updated by: Madalyn Perez MD IOL gestational HTN. Epidural. 2nd degree. Ezequiel Lanie Butterfieldbeth Delivery Date: 01/19/24 Last Updated by: Madalyn Perez MD Robin Vital Signs and Lab Results Vital Signs Most Recent Vital Signs in EMR: Most Recent Vital Signs Temp Pulse Resp BP Pulse Ox 36.4 C L 102 H 16 123/68 98 05/08/25 20:22 05/08/25 20:24 05/08/25 11:47 05/08/25 20:24 05/08/25 11:47 Lab Results 05/08/25 08:55 Blood Type / Crossmatch: 2 Antibody Screen NEGATIVE Today Complete Blood Count: 2 WBC, (4.4-10.8) 8.98 10^3/uL Today, 08:55 RBC, (3.93-5.22) 3.78 10^6/uL L Today, 08:55 Hgb, (11.2-15.7) 11.4 g/dL Today, 08:55 Hct, (36.0-46.0) 34.0 % L Today, 08:55 Plt Count, (130-400) 304 10^3/uL Today, 08:55 Anesthesia Assessment and Plan Anesthesia History Personal History: No History of Anesthesia Complications Family History: No Family History of Anesthesia Complications and Malignant Hyperthermia Exercise Tolerance Exercise Tolerance: Other Pertinent Negatives Pertinent Negatives: No Major Cardiovascular Symptoms or Complaints and No Major Pulmonary Symptoms or Complaints Cardiac & Pulmonary Exam Cardiac Exam: Normal S1/S2 Heart Sounds Pulmonary Exam: Clear Bilateral Breath Sounds Implantable Cardiac Device Does patient have a Pacemaker or an ICD?: No Airway Exam Known Difficult Airway: No Mouth Opening: Normal (> 3cm) Thyromental Distance: Greater than 3 cm Neck Range of Motion: Full ROM Neck Circumference: Normal ASA Classification ASA Score: ASA 2 Emergency Case?: No NPO Status NPO Status: Full Stomach () Status Status: Confirmed Anesthesia Plan Resuscitation Status: Full Code Anesthesia Technique: Labor Epidural Airway Planned: Natural Airway Monitors Used: Standard Monitors
--- NOTE | 2025-05-08 22:15 | OBVDS_ITS ---
Date of service: 05/08/25 Time of Service: 21:30 OB Labor/ Delivery Information Baby A Delivery Delivery Method: Spontaneaous Presentation: Cephalic Cephalic Position: Vertex Vertex Position: Left Occipital Anterior Cord Description-Baby A: 3 Vessels Quantitative Blood Loss: 350 Delivery Outcome: Liveborn Note: The pt underwent induction at term with pitocin followed by AROM. She progressed slowly with the baby in occiput posterior position. At 7cm she requested an epidural for pain management. Prior to anesthesia's arrival, the pt got up to the bathroom with assistance to empty her bladder. While on the toilet she said she needed to push. She was found to be pushing involuntarily and baby was . She delivered the head while standing by the toilet. There was a loose nuchal cord and after some maneuvering of her position the shoulders quickly delivered followed by the rest of the body onto a pillow on the floor. The baby was brought to her chest and with assistance she was moved to the bed. Next the cord was clamped x2 cut. Cord blood was collected. The pl acenta delivered with gentle cord traction and fundal massage and appeared intact. There was a small abrasion at the perineum that was hemostatic and not repaired. The fundus was firm with good hemostasis. Mom and baby stable at time of note. Providers Doctor: Rose Miles Nurse: Josi Tyson Nurse: Winnie Newby Labor/Delivery Information Number of Babies in Womb: 1 Steroids Given: None Reason Steroids Not Administered: N/A Group Beta Strep: Negative Antibiotics Administered: No Rubella Status: Immune Blood Type: O+ Varicella Immunity: Immune Shoulder Dystocia: No Stages of Labor Onset of Labor Date: 05/08/25 Onset of Labor Time: 17:25 Complete Dilatation Date: 05/08/25 Complete Dilatation Time: 21:35 Labor - Stage 1 Duration: 4 hours and 10 minutes ROM Baby A: 05/08/25 ROM Baby A: 17:25 ROM Total Time- Baby A: [id number] Delivery Date-Baby A: 05/08/25 Delivery Time-Baby A: 21:38 Labor Stage 2 Duration: 3 minutes Placenta Delivery Date-Baby A: 05/08/25 Placenta Delivery Time-Baby A: 21:44 Labor-Stage 3 Duration: 6 minutes Total Length of Labor-Baby A: 4 hours and 13 minutes Placenta Status: Delivered Baby A Infant Gender: Female Gestational Status: Term (39-41.6 wks) Gestational Age in Weeks/Days: 39 Weeks and 2 Days Length-Baby A: 21 in Score-1 Minute Interval(Baby A) Heart Rate-1 minute: 100 BPM or Greater Respiratory Effort- 1 minute: Slow Respiration/Weak Cry Muscle Tone-1 minute: Minimal Flexion/Extension Reflex Response-1 minute: Prompt Response Color-1 minute: Bluish Hands or Feet Total Score-1 minute: 7 Score-5 Minute Interval(Baby A) Heart Rate- 5 minute: 100 BPM or Greater Respiratory Effort-5 minute: Spontaneous/Strong Cry Muscle Tone-5 minute: Active Movement Reflex Response-5 minute: Prompt Response Color-5 minute: Bluish Hands or Feet Total Score- 5 minute: 9
[2025-05-08] MEDS: Acetaminophen 325 MG TAB 650 MG PO (23:11)
[2025-05-08] MEDS: Ibuprofen 600 MG TAB PO (23:12)
[2025-05-09 00:28] VITALS: BP 134/66; PULSE 98
[2025-05-09 01:30] VITALS: BP 116/74; PULSE 88; RESP 17; TEMP 36.6; O2SAT 99
--- NOTE | 2025-05-09 08:20 | W.PM.OBPNV1 ---
Date of service: 05/09/25 Time of Service: 08:20 Assessment and Plan Assessment and plan (1) Spontaneous vaginal delivery: Assessment and plan: 24 yo G3 now P3003 ( x3) s/p 39 wk on 05/08 PM - Rh+ / Rub I / VZV I / GBS neg - uncomplicated - Intrapartum course uncomplicated - course pending - Lochia under evaluation - - Last pap 11/08/2024 neg cytology - depression counseling pending - Contraception: pending - Anticipated D/C pending - - - - - - - - - - - - - - - - 05/09/2025 (Maninder): Patient and reports feeling well this morning. However, she does report that her current bleeding is notably heavier for her than in prior pregnancies. She denies any signs or symptoms of hemodynamic instability and she appears to be in good spirits. She is sitting up in her chair breast-feeding her baby without issue. She states that she passed a sizable blood clot this morning and this did decrease some of her cramping. Will go ahead and collect a CBC and monitor closely over the next hour. Will have a low threshold for medications as needed. - - - - - - - - - - - - - - - - Subjective Subjective Interval history: 24 yo ( x3) s/p 39 wk from 05/08/2025 PM. She reports feeling well this AM. She is eating and urinating without issue. She is . She is in good spirits. She does reports concerns surrounding heavier lochia than usual, though she denies any s/sx of hemodynamic instability. Exam Physical Exam Vital signs: Temp Pulse Resp BP Pulse Ox 97.9 F 88 17 116/74 99 05/09/25 01:30 05/09/25 01:30 05/09/25 01:30 05/09/25 01:30 05/09/25 01:30 Constitutional Constitutional: no acute distress Respiratory Exam Respiratory Exam: Normal Extremities Exam Comment: +1 edema noted equally bilaterally Psychiatric Exam Psychiatric Exam: Normal Results Hemoglobin/Hematocrit: Hgb 11.4 g/dL (11.2-15.7) 05/08/25 08:55 Hct 34.0 % (36.0-46.0) L 05/08/25 08:55 Abnormal Lab Findings: Abnormal Labs 05/08/25 08:55 RBC 3.78 L Hct 34.0 L
[2025-05-09] MEDS: Acetaminophen 325 MG TAB 650 MG PO ×2 (08:39→13:36)
[2025-05-09] MEDS: Ibuprofen 600 MG TAB PO (08:40)
[2025-05-09 09:01] VITALS: BP 121/83; PULSE 87; RESP 18; TEMP 36.1
[2025-05-09 09:03] LABS: HCT 32.1 % (36.0-46.0); HGB 10.6 g/dL (11.2-15.7); MCH 29.7 pg (27.0-33.0); MCHC 33.0 % (32.0-36.0); MCV 90 fL (80-95); MPV 10.1 fL (8.0-11.0); Platelet Count 323 10^3/uL (130-400); RBC 3.57 10^6/uL (3.93-5.22); RDW 13.1 % (11.7-14.6); RDW-SD 43.2 fL; WBC 14.46 10^3/uL (4.4-10.8)
[2025-05-09 13:33] VITALS: BP 118/70; PULSE 78; RESP 16; TEMP 36.7
[2025-05-09] MEDS: Dibucaine 1% 28 GM TUBE TP (13:36)
[2025-05-09] MEDS: Hamamelis Leaf/Glycerin 100 EACH BOX PR (13:36)
--- NOTE | 2025-05-09 16:53 | W.PM.OBPNV1 ---
Date of service: 05/09/25 Time of Service: 16:54 Assessment and Plan Assessment and plan (1) Vaginal delivery: Status: Acute Assessment and plan: 24 yo G3 now P3003 ( x3) s/p 39 wk on 05/08 PM - Rh+ / Rub I / VZV I / GBS neg - uncomplicated - Intrapartum course uncomplicated - course pending - Lochia under evaluation - - Last pap 11/08/2024 neg cytology - depression counseling pending - Contraception: Plans for rhythm method; encouraged 18 months between pregnancies - Anticipated D/C 05/10/2025 AM - - - - - - - - - - - - - - - - 05/09/2025 at 0800 (Maninder): Patient and reports feeling well this morning. However, she does report that her current bleeding is notably heavier for her than in prior pregnancies. She denies any signs or symptoms of hemodynamic instability and she appears to be in good spirits. She is sitting up in her chair breast-feeding her baby without issue. She states that she passed a sizable blood clot this morning and this did decrease some of her cramping. Will go ahead and collect a CBC and monitor closely over the next hour. Will have a low threshold for medications as needed. 05/09/2025 at 1700 (Maninder): Patient reports that her bleeding and cramping have significantly improved since this morning. Her lab work is reassuring. She will stay overnight in anticipation of discharge in the AM. - - - - - - - - - - - - - - - - Subjective Subjective Narrative: Patient found resting comfortably in bed in good spirits. She reports that her bleeding and cramping have significantly improved. She is without complaints currently. Exam Physical Exam Vital signs: Temp Pulse Resp BP Pulse Ox 98.1 F 78 16 118/70 99 05/09/25 13:33 05/09/25 13:33 05/09/25 13:33 05/09/25 13:33 05/09/25 01:30 Narrative: General: Well nourished female resting comfortably Pulm: No overt respiratory distress Abd: Gravid, non-tender Ext: No swelling Affect: Calm, cooperative Results Hemoglobin/Hematocrit: Hgb 10.6 g/dL (11.2-15.7) L 05/09/25 08:45 Hct 32.1 % (36.0-46.0) L 05/09/25 08:45 Abnormal Lab Findings: Abnormal Labs 05/08/25 05/09/25 08:55 08:45 WBC 14.46 H RBC 3.78 L 3.57 L Hgb 10.6 L Hct 34.0 L 32.1 L
[2025-05-09 20:00] VITALS: BP 116/72; PULSE 75; RESP 17; TEMP 36.7; O2SAT 99
[2025-05-10 08:35] VITALS: BP 110/79; PULSE 95; RESP 16; TEMP 37; O2SAT 97
--- NOTE | 2025-05-10 08:38 | W.PM.DS.N ---
Date of service: 05/10/25 Time of Service: 08:00 DS: Diagnosis Discharge Diagnosis (1) Vaginal delivery: Status: Inactive Asessment and Plan: Pt is PPD#2 s/p NVD and doing very well. She had a slight increase in bleeding yesterday am that resolved s/p evacuation of a large blood clot. Baby is breast feeding well. Discharge Plan Disposition Patient Disposition: Home Condition: Good Discharge Details Reason For Visit: Induction of Labor Admit Date/Time: 05/08/25 08:15 Admit Provider: Rose Miles Attending Provider: Rose Miles [facility] Course: 24 yo G3 now P3003 ( x3) s/p 39 wk on 05/08 PM - Rh+ / Rub I / VZV I / GBS neg - complicated by obesity - Intrapartum course uncomplicated - course uncomplicated - - Last pap 11/08/2024 neg cytology - counseling completed at discharge - Contraception: Rhythm method - - - - - - - - - - - - - - - - Patient presented to L&D on 05/08/2025 for an induction of labor. She was initiated on Pitocin and underwent AROM to clear fluid. She ultimately underwent a 39 week vaginal delivery without epidural anesthesia; she did not require repairs. Her post course was remarkable for heavier lochia which resolved following passage of a sizeable clot early the following morning; her bloodwork remained reassuring. Home Meds and New Rx's Prescriptions: New Dermoplast 20 % aerosol 1 applic topical TID-QID 5 Days Qty: 78 1RF ibuprofen 600 mg tablet 600 mg PO Q6H 10 Days Qty: 40 0RF acetaminophen 325 mg Tablet 650 mg PO Q4H PRN PRNQty: 0 0RF ibuprofen 600 mg Tablet 600 mg PO Q6H PRN PRNQty: 60 0RF Continued ferrous sulfate 325 mg (65 mg iron) tablet 325 mg PO DAILY PNV,calcium 29-mcne-jjxuk acid 27 mg iron- 1 mg tablet 1 tab PO DAILY Qty: 90 4RF Rx Instructions: give with food (meal/snack) Discharge Instructions Instructions: What to Watch for After You Have a Baby, Normal Bleeding After Having a Baby, Exercises, Taking Care of Yourself After You Have a Baby Additional Instructions: ? Eat a well-rounded diet ? Ambulate regularly and engage in light activity while avoiding repeated heavy lifting (over 10 pounds) ? Take your medications as prescribed ? Please be sure to attend your follow-up visits ? If you have an incision, be sure to keep it clean and dry using simple soap and water; avoid scrubbing to avoid damage to suture ? If you have been prescribed narcotics such as tramadol or oxycodone or [place], please note these medications have an addictive potential and should be used sparingly.? Please discard of any leftover medication either with your local pharmacy or by flushing the medication.? Do not share these medications with other individuals, and have a low threshold for seeking immediate medical evaluation if you experience any sleepiness, headaches, or any other concerns while using these medications. ? Please do not insert anything vaginally, including but not limited to, tampons, douching, or sexual intercourse, for a full 8 weeks and/or until you are medically cleared. ? If you have any concerns including fevers/chills, lightheadedness, visual changes, persistent headaches unresponsive to Tylenol, persistent nausea/vomiting, persistent abdominal pain, bruising and or leakage from your incision sites, excessive vaginal bleeding, or any other concerns, please have a low threshold for seeking immediate medical evaluation and/or reaching out to our clinic at [phone]. ? If you find yourself having crying spells you cannot explain, loss of appetite, persistent inability to sleep, lack of bonding with your baby, and/or general and persistent sadness, please feel free to reach out to our clinic immediately at [phone]. Stand Alone Forms: BC Instructions, BC Post Vaginal Deliver Activity:: pelvic rest x6 weeks Equipment/Supplies:: No Equipment Needed Diet:: Normal Diet Discharge Orders Discharge Orders: Discharge Order (Routine); Ordered 05/10/25 Ordered By: Rose Miles Discharge Data Discharge Date/Time-TO BE ENTERED AT DEPARTURE: 05/10/25 10:25 DS: Summary Time Spent with Patient providing and/or coordinating discharge services: Less than 30 minutes Status at Discharge Functional status at discharge: independent ambulation Overall status at discharge: patient is back to baseline Mental Status: mental status grossly normal Speech and Movement: speech and movement normal Mood: congruent mood Affect: normal affect Exam Const General: cooperative and comfortable Nutritional Appearance: obese Orientation: alert, awake and oriented x3 Resp Effort & Inspection: normal respiratory effort GI Palpation: nontender (fundus firm and down from uterus) Psych Appearance: grossly normal Mental Status: mental status grossly normal Speech and Movement: speech and movement normal Mood: congruent mood Affect: normal affect DS: Data Vitals/I&O Vitals and I&O: Vital Signs Temperature 98.1 F 05/09/25 20:00 Temperature Source Tympanic 05/09/25 20:00 Pulse 75 05/09/25 20:00 Pulse Rhythm Regular 05/09/25 20:00 Respiratory Rate 17 05/09/25 20:00 Blood Pressure 116/72 05/09/25 20:00 Blood Pressure Mean 86 05/09/25 20:00 Pulse Oximetry 99 05/09/25 20:00 Oxygen Delivery Method Room Air 05/08/25 08:54 Oxygen Flow Rate 0 05/08/25 08:54 Pain Level 0 05/08/25 08:54 Intake & Output 05/09/25 05/09/25 05/10/25 11:59 23:59 11:59 Output Total 750 / 750 Balance -750 / -750 Output: Urine 700 / 700 Blood 50 / 50 Other: Urine Color Yellow Yellow Urine Appearance Clear Urine Odor None Data Completed and Pending Labs on day of discharge: Labs from last 24 hours 05/09/25 08:45 WBC 14.46 H RBC 3.57 L Hgb 10.6 L Hct 32.1 L MCV 90 MCH 29.7 MCHC 33.0 RDW 13.1 Plt Count 323 MPV 10.1 PFSH All Active Problems (Updated 05/10/25 @ 14:03 by Rose Miles MD) BMI 34.0-34.9,adult (Acute) Medical History (Updated 05/10/25 @ 14:03 by Rose Miles MD) Spontaneous vaginal delivery 12/19/22. F. 7lb8oz.F Lanie 01/20/24. M. 7lb8oz. Robin Cholelithiasis Family History (Updated 11/08/24 @ 13:16 by Jennifer Shi CNM) Paternal Aunt Multiple myeloma Maternal Grandmother Diabetes Maternal Cousin Heart defect Social History (Updated 11/08/24 @ 13:18 by DAYA Snow Smoking/Tobacco Use Status: Never Second Hand Exposure: No Smoking risk assessment performed?: Yes Alcohol Intake: never Drug use: Never Substance use type: does not use Household members: spouse, children and other Details: Ricardo-Kandis Rao, Greg Housing: house Number of Children: 2 Education Level: high school current occupation: homemaker. Pets and animals: No Sexually active: Yes Do you think of yourself as: straight/heterosexual Current gender identity: female What is your relationship status?: How often do you talk on the phone with friends or family?: twice per week How often do you get together with friends or relatives?: twice per week Do you belong to any clubs or organized social groups?: no Panel score (0-1 are the most socially isolated patients): 2 What type of physical activity do you participate in: walking Duration: 15-30 minutes/day Frequency: 3-4 times per week Nadia/Denominational: Religious Special nadia needs: No Agree to transfusion: Yes Seatbelt use: always Helmet use: Yes Drive intox or ride w/intox dedicated regional driver: Yes Water heater temp set <120 deg: Yes Working smoke detector in home: Yes Fire extinguisher in home: Yes Carbon monox detector in home: Yes Firearms in home: Yes Firearms unloaded and locked: Yes Do you feel safe at home: Yes Do you feel safe in your relationship?: Yes History History 3 Para 3 Hx # Term Pregnancies 3 Multiple births 0 Hx # Pregnancies 0 Ectopic pregnancies 0 AB induced 0 Hx Number of Living Children 3 AB spontaneous 0 Past Pregnancies Del. Date GA/Weeks # Preg Succ Route Wgt Sex Labor Lgth Anesthesia Location [facility] 12/11/22 39 No Yes vaginal 7 lb 8 oz Female 17hr [facility] 01/19/24 39 No Yes vaginal 7 lb 8 oz Male aoc 05/08/25 39 Yes vaginal Female 4 hours and 13 minutes [place] Delivery Date: 12/11/22 Last Updated by: Madalyn Perez MD IOL gestational HTN. Epidural. 2nd degree. Ezequiel Prater Delivery Date: 01/19/24 Last Updated by: MD Robin Armstrong Time Spent with Patient Time Spent with Patient: <45 minutes Time was spent: preparing to see the patient(eg.review tests), obtaining and/or reviewing separately otained hiistory and counseling the patient
== END 2025-05-10 10:25 | disposition home or self-care (01) | DRG 807 ==
PROVIDERS: Obstetrics & Gynecology; Admitting Provider Obstetrics & Gynecology; PCP Family Medicine; Visit Provider Obstetrics & Gynecology
DX: O99.02 Anemia complicating childbirth (principal); Z37.0 Single live birth; D64.9 Anemia, unspecified; O69.81X0 Labor and delivery complicated by cord around neck, without compression, not applicable or unspecified; O71.82 Other specified trauma to perineum and vulva; Z3A.39 39 weeks gestation of pregnancy
CPT/HCPCS: 36415; 85027; 86850; 86900; 86901; 85025

== ENCOUNTER 2025-05-29 14:23 | Outpatient (REF) | payer MEDICAID, SELFPAY | END 2025-05-29 14:24 | disposition home or self-care (01) | LOC: LBN 14:23 | PROVIDERS: PCP Family Medicine; Visit Provider Obstetrics & Gynecology | DX: N89.8 Other specified noninflammatory disorders of vagina | CPT/HCPCS: 87480; 87510; 87660 ==